=== PATIENT | male | born 1945 | race Caucasian/White ===

== ENCOUNTER → 2016-07-12 | Outpatient (CLI) | payer BC ==
[~2016-07-12] MED LIST: ASPI325T39 PO; ATEN50TA8 PO; CYAN3INJ IM; FRRS300 PO; HYDR-5688 PO; MELA3TAB PO; PRLSR20 PO; ROSU40TA PO; TRIA37.5 PO
[2016-07-12 12:34] LABS: ALT/SGPT 36 U/L (12-78); AST/SGOT 21 U/L (15-37); BLOOD UREA NITROGEN 11 mg/dl (7-18); CALCIUM 8.9 mg/dl (8.5-10.1); CARBON DIOXIDE 33 mmol/L (21-32); CHLORIDE 103 mmol/L (98-107); GLUCOSE 102 mg/dl (70-99); POTASSIUM 4.2 mmol/L (3.5-5.1); SODIUM 140 mmol/L (136-145)
[2016-07-12 12:39] LABS: HEMATOCRIT 48.4 % (42-52); MEAN CELL VOLUME 87.7 fL (80-100); MEAN CORPUSCULAR HEMOGLOBIN 29.3 pg (25-34); MEAN CORPUSCULAR HGB CONC 33.5 g/dl (32-36); MEAN PLATELET VOLUME 10.4 fL (7.4-10.4); PLATELET COUNT 269 K/uL (130-400); RED BLOOD COUNT 5.52 M/uL (4.7-6.1); WHITE BLOOD COUNT 8.54 K/uL (4.8-10.8)
[2016-07-12 12:41] LABS: ALB/GLOB RATIO 0.9 (0.9-2); ALKALINE PHOSPHATASE 89 U/L (45-117); CHOLESTEROL 148 mg/dl (0-200); CHOLESTEROL/HDL RATIO 3.4; HDL CHOLESTEROL 43 mg/dl; LDL CHOLESTEROL CALCULATED 73 mg/dl; PROSTATE SPECIFIC ANTIGEN 0.499 ng/ml (0.000-4.000); TRIGLYCERIDES 160 mg/dl (0-150); VERY LOW DENSITY LIPOPROT CALC 32 mg/dl
[2016-07-12 14:13] LABS: ESTIMATED AVERAGE GLUCOSE 123 mg/dl; HA1C FLAG Normal (Normal)
== END | disposition home or self-care (01) ==
LOC: C.LABBFT 08:41
PROVIDERS: ATTEND Physician Assistant Medical
DX: E78.5 Hyperlipidemia, unspecified (principal); R73.01 Impaired fasting glucose; K21.9 Gastro-esophageal reflux disease without esophagitis; Z12.5 Encounter for screening for malignant neoplasm of prostate

== ENCOUNTER → 2017-01-26 | Outpatient (CLI) | payer BC ==
[2017-01-26 12:43] LABS: HEMATOCRIT 48.3 % (42-52); MEAN CORPUSCULAR HEMOGLOBIN 29.8 pg (25-34); MEAN CORPUSCULAR HGB CONC 33.5 g/dl (32-36); MEAN PLATELET VOLUME 10.3 fL (7.4-10.4); PLATELET COUNT 211 K/uL (130-400); RED BLOOD COUNT 5.43 M/uL (4.7-6.1); WHITE BLOOD COUNT 7.39 K/uL (4.8-10.8)
[2017-01-26 13:07] LABS: ALT/SGPT 35 U/L (12-78); BLOOD UREA NITROGEN 14 mg/dl (7-18); BUN/CREATININE RATIO 13.1 (10-20); CALCIUM 8.9 mg/dl (8.5-10.1); CARBON DIOXIDE 29 mmol/L (21-32); CHLORIDE 104 mmol/L (98-107); CHOLESTEROL 141 mg/dl (0-200); CREATININE 1.09 mg/dl (0.60-1.40); GLUCOSE 88 mg/dl (70-99); POTASSIUM 3.9 mmol/L (3.5-5.1); SODIUM 140 mmol/L (136-145)
[2017-01-26 13:17] LABS: ESTIMATED AVERAGE GLUCOSE 120 mg/dl; HA1C FLAG Normal (Normal)
[2017-01-26 13:18] LABS: ALB/GLOB RATIO 0.9 (0.9-2); ALKALINE PHOSPHATASE 90 U/L (45-117); AST/SGOT 20 U/L (15-37); CHOLESTEROL/HDL RATIO 4.1; HDL CHOLESTEROL 34 mg/dl; LDL CHOLESTEROL CALCULATED 61 mg/dl; THYROID STIMULATING HORMONE 0.986 uIu/ml (0.300-4.500); TRIGLYCERIDES 229 mg/dl (0-150); VERY LOW DENSITY LIPOPROT CALC 46 mg/dl
== END | disposition home or self-care (01) ==
LOC: C.LABBFT 08:16
PROVIDERS: ATTEND Internal Medicine
DX: E53.8 Deficiency of other specified B group vitamins (principal); E78.5 Hyperlipidemia, unspecified; I10 Essential (primary) hypertension; R73.01 Impaired fasting glucose

== ENCOUNTER → 2017-08-09 | Outpatient (CLI) | payer BC ==
[2017-08-09 12:46] LABS: HEMOGLOBIN A1C 5.8 % (4.5-5.6)
[2017-08-09 12:49] LABS: ALBUMIN 3.3 gm/dl (3.4-5.0); ALKALINE PHOSPHATASE 89 U/L (45-117); ALT/SGPT 26 U/L (12-78); AST/SGOT 15 U/L (15-37); BLOOD UREA NITROGEN 14 mg/dl (7-18); CALCIUM 8.4 mg/dl (8.5-10.1); CARBON DIOXIDE 29 mmol/L (21-32); CHOLESTEROL 169 mg/dl (0-200); CREATININE 1.09 mg/dl (0.60-1.40); GLUCOSE 96 mg/dl (70-99); LDL CHOLESTEROL CALCULATED 84 mg/dl; POTASSIUM 3.9 mmol/L (3.5-5.1); SODIUM 141 mmol/L (136-145); TOTAL PROTEIN 7.3 gm/dl (6.4-8.2)
== END | disposition home or self-care (01) ==
LOC: C.LABBFT 08:08
PROVIDERS: ATTEND Internal Medicine
DX: Z12.5 Encounter for screening for malignant neoplasm of prostate (principal); R73.01 Impaired fasting glucose; E78.5 Hyperlipidemia, unspecified

== ENCOUNTER 2023-05-04 08:43 | Observation (INO) ==
--- NOTE | 2023-03-23 09:09 | PAT Medication Instructions ---
Medication Instructions Date of Service March 23, 2023 Home Medications Medication Instructions Recorded atenolol 50 mg tablet 50 mg PO QAM #90 tabs 05/26/22 omeprazole 20 mg capsule,delayed 20 mg PO QAM #90 caps 05/26/22 release aspirin 81 mg tablet 81 mg PO QAM atenolol 50 mg tablet 50 mg PO QAM omeprazole 20 mg capsule,delayed release 20 mg PO QAM atorvastatin 80 mg tablet (Lipitor) 80 mg PO QAM celecoxib 200 mg capsule 200 mg PO QAM valsartan 80 mg tablet 80 mg PO QAM ASK your surgeon for instructions celecoxib 200 mg capsule 200 mg PO QAM ASK your prescriber and surgeon aspirin 81 mg tablet 81 mg PO QAM DO NOT take the morning of surgery valsartan 80 mg tablet 80 mg PO QAM Take morning of surgery With a small sip of water, OTHERWISE NOTHING TO EAT OR DRINK AFTER MIDNIGHT: atenolol 50 mg tablet 50 mg PO QAM omeprazole 20 mg capsule,delayed release 20 mg PO QAM atorvastatin 80 mg tablet (Lipitor) 80 mg PO QAM Other Notes If you have any questions please call us at [phone] or [phone] or [phone] or [phone]
--- NOTE | 2023-03-29 14:39 | Anesthesiology Consultation ---
Date of Service March 29, 2023 Assessment & Plan (1) Encounter for pre-operative examination: - upcoming [place] PCP pre-operative evaluation 04/27/23. - overnight booking per form from Dr. Lemus's office. Patient and his confirm this. OR notified. Chart Review Chart Review: Pending: Refer to Additional Notes / Consult section and Patient seen in Pre Admission Testing Teaching & Discussion Pre-Anesthesia Teaching/Discussion Notes: Instructed NPO after midnight before surgery, except medications with 15 cc of water. Medication instructions provided according to the PAT guidelines. History Surgery Operation Date: 05/04/23 09:15 Proposed Procedures p Right Total Knee Arthroplasty - Erwin Lmeus MD Height/Weight Height: 5 ft 5 in Weight: 108 kg Allergies Allergy/AdvReac Type Severity Reaction Status Date / Time No Known Allergies Allergy Verified 03/22/23 12:28 Medications Home Medications Medication Instructions Recorded Confirmed Last Taken aspirin 81 mg tablet 81 mg PO QAM 03/08/21 03/22/23 06/14/22 07:00 atenolol 50 mg tablet 50 mg PO QAM #90 tabs 05/26/22 03/22/23 06/14/22 07:00 omeprazole 20 mg capsule,delayed 20 mg PO QAM #90 caps 05/26/22 03/22/23 06/14/22 07:00 release atorvastatin 80 mg tablet (Lipitor) 80 mg PO QAM 06/09/22 03/22/23 06/14/22 07:00 celecoxib 200 mg capsule 200 mg PO QAM 06/09/22 03/22/23 06/13/22 valsartan 80 mg tablet 80 mg PO QAM 06/09/22 03/22/23 06/14/22 07:00 Past Medical History Medical History (Updated 03/29/23 @ 14:50 by Sybil Snell PA-C) History of blood transfusion > 10 yrs ago History of diverticulitis last episode several yrs ago History of COVID-05 February 2022: no hospitalization, symptoms: flu like symptoms. no current issues Pneumonia ~ History of colon polyps benign per pt Sensorineural hearing loss (SNHL) of both ears Pulmonary emboli (~2020) s/p whipple procedure. treated with anticoagulants, no current issues. Pancreatic tumor (2020) benign tumor. VI (obstructive sleep apnea) Highly suspected per hospital admission 03/2020. pt does not know if he has/declined sleep study Chronic back pain chronic, denies recent change or worsening GERD (gastroesophageal reflux disease) controlled, stable per pt Hyperlipidemia Hypertension controlled, stable per pt Patient denies h/o stroke, seizures, heart attack, heart failure, or DM. Exercise / Class Metabolic Activity III < 4 Walking/Shop/Light housework (denies chest discomfort or shortness of breath with usual activities, denies using stairs at home (less than 8 steps)) Past Family History Family History Mother Arthritis Cancer female cancer, unknown type by family Brother Prostate cancer AAA (abdominal aortic aneurysm) Cancer Other No family history of adverse response to anesthesia Denies family history of Ovarian cancer Myocardial infarction Breast cancer Lung cancer Colorectal cancer Past Surgical History Surgical History H/O Whipple procedure History of esophagogastroduodenoscopy (EGD) History of tonsillectomy History of colonoscopy History of knee replacement left Past Anesthesia History No Hx of Anesthesia Complications and No Family Hx of Anesthesia Complications History of PONV No Hx of PONV and No Hx of Motion Sickness Social History Smoking Status: Former smoker tobacco type: cigarettes Do You Dip or Chew Tobacco: No Smoking End Date: Hx Alcohol Use: Yes Alcohol type: beer and wine alcohol intake frequency: a few times a week Hx Substance Use: No substance use type: does not use Review of Systems Patient denies chest pain, shortness of breath, dyspnea on exertion, fever, chills, cough, wheezing, or palpitations. Physical Exam Vital Signs Vitals BP 166/85 manual left arm with patient sitting with feet flat on floor after several minutes of relaxation; initial reading 175/100 left arm automatic P 53 TEMP 97.5 SP02 95% on RA RESP 17 Physical Patient resting comfortably in chair in no acute distress, alert and oriented, responding appropriately throughout visit Full cervical extension range of motion without pain TMD 3 finger breadths Mallampati Score 3 Dentition: intact, denies chipped or loose teeth, caps/crowns, implants or bridges Lungs: normal respiratory effort. Good air movement, clear throughout to auscultation, no adventitious breath sounds Cardiac: regular rate and rhythm, no murmurs noted Carotid arteries: negative bruit bilat Lab Results Anesthesia Preop Results Results Anesthesia Widget: WBC 7.25 K/ul (4.8-10.8) 03/29/23 Hgb 15.8 g/dl (14.0-18.0) 03/29/23 Hct 46.2 % (42.0-52.0) 03/29/23 Plt 192 K/uL (130-400) 03/29/23 Na 142 mmol/L (136-145) 03/29/23 K 4.2 mmol/L (3.5-5.1) 03/29/23 Cl 110 mmol/L (98-107) H 03/29/23 CO2 26 mmol/L (21-32) 03/29/23 BUN 15 mg/dl (6-23) 03/29/23 Creat 0.78 mg/dl (0.6-1.4) 03/29/23 Glucose Level 100 mg/dl (70-99(Fasting)) H 03/29/23 PT 12.1 Seconds (9.0-12.0) H 03/29/23 PTT 29 Seconds (21-31) 03/29/23 INR 1.1 (0.9-1.1) 03/29/23 Urine Color Yellow 03/29/23 Urine Appearance Clear (Clear) 03/29/23 Urine pH 5.5 (4.5-7.5) 03/29/23 Urine Specific [place] 1.012 (1.000-1.030) 03/29/23 Urine Protein Negative (Negative) 03/29/23 Urine Glucose (UA) Negative (Negative) 03/29/23 Urine Ketones Negative (Negative) 03/29/23 Urine Blood Negative (Negative) 03/29/23 Urine Nitrite Negative (Negative) 03/29/23 Urine Bilirubin Negative (Negative) 03/29/23 Urine Urobilinogen Negative (Negative) 03/29/23 Urine Leukocyte Esterase Negative (Negative) 03/29/23 Blood Type A Negative 03/29/23 Antibody Screen NEGATIVE 03/29/23 Testing Electrocardiogram Date: 03/29/23 Sinus bradycardia, rate 54 bpm Left axis deviation Minimal voltage criteria for LVH Chest X-Ray Date: 03/29/23 Cardiomegaly with no active disease in the chest. Echocardiogram Date: 03/29/20 EF 65-70% Mild cLVH No significant valvular pathology
--- NOTE | 2023-05-02 16:18 | History & Physical Report ---
Date of Service May 02, 2023 Assessment & Plan (1) Degenerative joint disease of knee, right: Plan: Right total knee replacement with patient-specific implants overnight stay home health to be provided by [facility] DVT prevention with aspirin (2) BMI 39.0-39.9,adult: History of Present Illness Chief Complaint: Right knee pain Primary Care Provider: Bandar Solitario DO Patient is a 81-year-old male with greater than 10-year history of bilateral knee pain and discomfort. He is status post left total knee replacement performed elsewhere in 2012. He continues to have residual pain symptoms in this knee and has had genicular block performed in 2021 with some help. His right knee pain is rated as a 7 out of 10. It is associated with decreased range of motion grinding giving way and instability. He has failed both injections and bracing. He is admitted for elective knee replacement surgery. Allergies Allergy/AdvReac Type Severity Reaction Status Date / Time No Known Allergies Allergy Verified 04/27/23 08:24 Home Medications Medication Instructions Recorded Confirmed Type aspirin 81 mg tablet 81 mg PO QAM 03/08/21 04/27/23 History omeprazole 20 mg capsule,delayed 20 mg PO QAM #90 caps 05/26/22 04/27/23 Rx release celecoxib 200 mg capsule 200 mg PO QAM 06/09/22 04/27/23 History atenolol 50 mg tablet 50 mg PO QAM #90 tabs 04/27/23 04/27/23 Rx atorvastatin 80 mg tablet (Lipitor) 80 mg PO QAM #90 tabs 04/27/23 04/27/23 Rx valsartan 80 mg tablet 80 mg PO QAM #90 tabs 04/27/23 04/27/23 Rx Past Med/Surg History Medical History History of blood transfusion > 10 yrs ago History of diverticulitis last episode several yrs ago History of COVID-05 February 2022: no hospitalization, symptoms: flu like symptoms. no current issues Pneumonia ~ History of colon polyps benign per pt Sensorineural hearing loss (SNHL) of both ears Pulmonary emboli (~2020) s/p whipple procedure. treated with anticoagulants, no current issues. Pancreatic tumor (2020) benign tumor. VI (obstructive sleep apnea) Highly suspected per hospital admission 03/2020. pt does not know if he has/declined sleep study Chronic back pain chronic, denies recent change or worsening GERD (gastroesophageal reflux disease) controlled, stable per pt Hyperlipidemia Hypertension controlled, stable per pt Surgical History H/O Whipple procedure History of esophagogastroduodenoscopy (EGD) History of tonsillectomy History of colonoscopy History of knee replacement left Family History Mother Arthritis Cancer female cancer, unknown type by family Brother Prostate cancer AAA (abdominal aortic aneurysm) Cancer Other No family history of adverse response to anesthesia Denies family history of Ovarian cancer Myocardial infarction Breast cancer Lung cancer Colorectal cancer Social History Smoking Status: Former smoker Tobacco Type: Cigarettes Age Started Using Tobacco: 18; Age Quit Using Tobacco: 38; packs per day: 1; Smoking End Date: ; Second Hand Exposure: No; Do You Dip or Chew Tobacco: No; Tobacco Cessation Education Requested by Patient: No Hx Alcohol Use: Yes Alcohol type: beer and wine Alcohol Intake Frequency: 2-3 x/Week Alcohol Intake Frequency Comment: one day a week, he'll have a few Hx Substance Use: No Preferred Language: Latvian Communication Ability: Effective Visual Impairment: No Limitations Hearing Ability: Normal Machine Feeder Raw Stock Required: No Beliefs That Will Affect Care: None marital status: Current Living Situation: Spouse current occupational status: retired 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 HEENT: NCAT, EOMI, PERRLA. Neck: Supple no bruits Heart: Regular rate and rhythm no murmurs Lungs: Breath sounds clear and present in all nicole Abdomen: Obese soft nontender bowel sounds positive Extremities right knee shows varus deformity range of motion is 0 to 110 degrees trace medial laxity positive effusion and pain. Neurological and vascular: Intact Results & Data Results & Data Vital Signs (Past 12 Hours) Blood pressure 122/82 Pulse 56
[~2023-05-04 08:43] MED LIST changes: -ASPI325T39 PO; -ATEN50TA8 PO; +BUPIVACAINE 0.5 % 5 MG/1 ML PF 10ML VIAL ONE; -CYAN3INJ IM; -FRRS300 PO; -HYDR-5688 PO; -MELA3TAB PO; -PRLSR20 PO; +ROPIVACAINE 0.5% 5 MG/ML 30 ML VIAL ONE; -ROSU40TA PO; -TRIA37.5 PO
[2023-05-04] MEDS: FAMOTIDINE 20 MG TAB PO SCH (09:12)
[2023-05-04] MEDS: oxyCODONE HCL 10 MG TABCR (OxyCONTIN) PO SCH (09:12)
[2023-05-04] MEDS: CeleBREX 200 MG CAP PO SCH (09:12)
[2023-05-04] MEDS: dexAMETHasone**PF** 10 MG/ML VIAL IV SCH (09:12)
[2023-05-04] MEDS: GABAPENTIN 300 MG CAP PO SCH (09:12)
[2023-05-04] MEDS: ACETAMINOPHEN 500 MG TAB PO SCH (09:12)
[2023-05-04] MEDS: LR 60ML/HR IV SCH (09:13)
[2023-05-04] MEDS: LR 500ML BOLUS, THEN 15ML/HR IV SCH (09:35)
--- NOTE | 2023-05-04 09:49 | History & Physical Bridge Note ---
Date of Service May 04, 2023 History & Physical Bridge Note I have examined the patient, reviewed the History & Physical and in the interval since the performance of the History & Physical I have noted the following changes of clinical significance: no changes noted
[2023-05-04] MEDS ORDERED: MIDAZOLAM HCL 1 MG/ML 2ML VIAL ONE (10:28)
[2023-05-04] MEDS ORDERED: fentaNYL citrate PF 100 MCG/2 ML VIAL ONE (10:28)
[2023-05-04] MEDS ORDERED: PROPOFOL IV EMULSION 10 MG/ML 20 ML VIAL IV ONE ×3 (10:31)
[2023-05-04] MEDS ORDERED: fentaNYL citrate PF 100 MCG/2 ML VIAL IV PRN (10:44)
[2023-05-04] MEDS ORDERED: ePHEDrine sulfate 50 MG/ML AMP IV PRN (10:44)
[2023-05-04] MEDS ORDERED: ATROPINE SULFATE 0.1 MG/ML 10ML SYR IV PRN (10:44)
[2023-05-04] MEDS ORDERED: ONDANSETRON INJ 2 MG/ML 2 ML VIAL IV PRN ×2 (10:44→14:43)
[2023-05-04] MEDS: TRANEXAMIC ACID 1,000 MG **IV Pre-op IV SCH (11:01)
[2023-05-04] MEDS: ceFAZolin 2000MG 2,000 MG/15 ML SYR IV SCH ×2 (11:18→19:13)
[2023-05-04] MEDS ORDERED: ePHEDrine sulfate 50 MG/5 ML SYR ONE (11:46)
[2023-05-04] MEDS: ORTHO JOINT ANESTHETIC ONE (11:55)
[2023-05-04] MEDS: ROPIV 0.5% 246mg, Ketorolac 30mg, EPINEPHrine 0.5mg in NSS INFIL SCH (12:15)
[2023-05-04] MEDS ORDERED: KETOROLAC 30 MG/ML VIAL ONE (12:20)
[2023-05-04] MEDS: TRANEXAMIC ACID 1,000 MG **IV Intra-op IV SCH (12:23)
--- NOTE | 2023-05-04 12:26 | Post Operative Brief Note ---
Immediate Post Op Note v1 Date of Surgery May 04, 2023 Pre & Post Diagnosis Operation Date: 05/04/23 10:30 Pre-Op Diagnosis: Degenerative joint disease of knee, right Post-Op Diagnosis: Degenerative joint disease of knee, right I identified the patient and participated in the time-out.: Yes Procedure Operation Date: 05/04/23 10:30 Actual Procedures p Right Total Knee Replacement - Erwin Lemus MD Surgeon Erwin Lemus MD Accessioner Darnell Petersen PA-C Estimated Blood Loss 100 Findings Consistent with Post-Op Diagnosis Drains Hemovac Drain
--- NOTE | 2023-05-04 13:17 | Operative Report ---
Post Operative Report Pre & Post Diagnosis Operation Date: 05/04/23 10:30 Pre-Op Diagnosis: Degenerative joint disease of knee, right Post-Op Diagnosis: Degenerative joint disease of knee, right I identified the patient and participated in the time-out.: Yes Procedure Operation Date: 05/04/23 10:30 Actual Procedures p Right Total Knee Replacement - Erwin Lemus MD Surgeon Erwin Lemus MD Ventilation Worker Darnell Petersen PA-C Estimated Blood Loss 100 Findings Consistent with Post-Op Diagnosis Tricompartmental degenerative changes with bone wear on the medial side of the k nee extreme Specimens bone and cartilage fragments Complications none Indications components used: [employer]hew journey 2 posterior stabilized knee system: Femur size 7 with Oxinium coating, tibia size 6 x 10, patella size 38 oval Description of Procedure following satisfactory spinal anesthesia the patient was supine on the operating room table. The right lower extremity was prepared with ChloraPrep and draped sterilely. A surgical timeout was performed. A midline incision was made with a median parapatellar arthrotomy. Hemostasis was obtained and the knee showed the changes noted above with chronically inflamed synovial lining. Because of the patient's large body habitus attention was turned to the patella. The patella was freehand cut and sized for a 38 button which enhanced exposure to the lateral compartment of the knee. The cruciate ligaments were excised. The patient matched femoral block was applied. Femoral distal resection and rotation were setting completed. The 4-in-1 block was then used to finish preparation of the femur. The meniscal fragments were excised. The patient matched tibial block was applied. Tibial resection was completed. Soft tissue balancing was completed in flexion and extension and required a superficial MCL release to balance the knee. A trial reduction with the above-mentioned components was performed. This showed good tensioning and stability on the collateral ligaments from full extension to more than 115 degrees of flexion and the patella tracked well throughout. Trial components were removed. The capsule was prepared with the orthopedic cocktail. After irrigation and drying the components were cemented using Lissy Z be cement cementing the tibia first, femur second, and patella third. When the cemented hardened the knee was checked and showed similar stability and tracking as above. The wound was irrigated with 500 cc of experience irrigation. A Hemovac drain was placed. The capsulotomy was closed with interrupted [id number] sutures of 1 Vicryl and a running suture of 0 strata fix. The subcutaneous tissues were closed with 0 strata fix deep 2 oh strata fix more superficial and 3 oh strata fix in the skin. Prineo dressing was applied followed by a negative pressure wound dressing and a compressive bandage. The patient was returned to his bed in stable condition. Note: Darnell TRISTAN was present and assisted throughout due to the complicated nature of this case. He help with preparation and set up an night assistant throughout. He assisted with hemostasis and exposure throughout the procedure. He also closed the capsule subcutaneous and skin layers and applied postop dressing. I attest to the content of the Intraoperative Record and any orders documented therein. Any exceptions are noted below.
--- NOTE | 2023-05-04 14:23 | Anesthesiology Progress Note ---
Date of Service May 04, 2023 Anesthesia Post Procedure Vital Signs Vital Signs: Temp Pulse Pulse Resp BP Pulse Ox O2 Del Method 05/04/23 14:00 68 16 128/71 96 Nasal Cannula 05/04/23 13:45 70 16 132/70 94 Nasal Cannula 05/04/23 13:35 36.5 C 72 16 132/82 94 Nasal Cannula 05/04/23 13:25 78 18 133/82 93 Oxymask 05/04/23 13:15 75 18 139/70 93 Oxymask 05/04/23 13:07 36.6 C 73 19 135/69 93 Oxymask 05/04/23 09:04 36.6 C 73 20 181/89 H 95 Room Air O2 Flow Rate 05/04/23 14:00 4 05/04/23 13:45 4 05/04/23 13:35 4 05/04/23 13:25 5 05/04/23 13:15 5 05/04/23 13:07 5 05/04/23 09:04 Notes Mental Status: alert / awake / arousable Patient Amnestic to Procedure: Yes Nausea / Vomiting: adequately controlled Pain: adequately controlled Airway Patency, RR, SpO2: stable & adequate BP & HR: stable & adequate Hydration State: stable & adequate Neuraxial Anesthesia: was administered and sensory block is resolving Anesthetic Complications: no major complications apparent
[2023-05-04] MEDS ORDERED: METOCLOPRAMIDE HCL INJ 5 MG/ML 2 ML VIAL IV PRN (14:43)
[2023-05-04] MEDS ORDERED: bisacodyL 10 MG SUPP PR PRN (14:43)
[2023-05-04] MEDS ORDERED: MAGNESIUM HYDROXIDE SUSP 30 ML UDC PO PRN (14:43)
[2023-05-04] MEDS ORDERED: NALOXONE HCL 0.4 MG/1 ML VIAL/CARP IV PRN (14:43)
[2023-05-04] MEDS: SODIUM CHLORIDE 0.9% 1,000 ML IV SCH (14:47)
[2023-05-04] MEDS: oxyCODONE HCL IR 5 MG TAB (IMMEDIATE RELEASE) PO PRN ×2 (14:58→19:05)
[2023-05-04] MEDS: DOCUSATE SODIUM 100 MG CAP PO SCH (21:32)
[2023-05-04] MEDS: ASPIRIN 81 MG ECTAB PO SCH (21:33)
[2023-05-04] MEDS: SENNA 8.6 MG TAB PO SCH (21:33)
--- NOTE | 2023-05-05 06:13 | Orthopedic Progress Note ---
Date of Service May 05, 2023 Assessment & Plan (1) Degenerative joint disease of knee, right: Plan: Postop day 1 status post right total knee arthroplasty. PT/OT protocols. Weightbearing as tolerated. DVT prophylaxis-aspirin p.o. twice daily, SCDs Pain management as written. DC planning-patient is planning for home health services upon discharge. Labs are currently pending. Nursing to call or [place] text myself or Dr. Lemus with any abnormalities. Otherwise, if he is progressing well with physical therapy, we will plan for discharge to home today. (2) BMI 39.0-39.9,adult: Admission and Anticipated Discharge Date Admission Date: May 04, 2023 Subjective Post Operative day 1 Patient awake and alert upon arrival to his room. Patient states that he is doing very well this morning. He has no pain whatsoever. He states that he has been up to the bathroom with nursing without difficulty. No obvious lightheaded ness when up out of bed. Patient is hoping to go home today. Physical Exam Physical Exam: Dressings are clean, dry, and intact. Calves are soft nontender. Neurovascular intact. Toes are mobile. He has good dorsiflexion and plantarflexion of his right foot. Hemovac drainage was 200 cc from the previous shift. Results & Data Vital Signs (Past 12 Hours) Vital Signs Temp Pulse Resp BP Pulse Ox O2 Del Method O2 Flow Rate 05/05/23 03:28 36.5 C 78 16 147/81 H 94 Room Air 05/04/23 21:51 Nasal Cannula 4 05/04/23 21:39 36.4 C L 74 18 160/89 H 94 Nasal Cannula 4 05/04/23 19:22 36.5 C 78 16 178/95 H 95 Room Air 05/04/23 19:03 160/71 H
[2023-05-05 08:43] LABS: Hematocrit (blood only) 40.7 % (42.0-52.0); Hemoglobin 13.4 g/dl (14.0-18.0); Mean Corpuscular Hgb Conc 32.9 g/dL (32.0-36.0); Mean Corpuscular Volume 91.1 fL (80.0-100.0); Mean Platelet Volume 9.8 fL (9.4-12.4); Platelet Count 194 K/uL (130-400); RDW Coefficient of Variation 11.9 % (11.5-14.5); Red Blood Count 4.47 M/uL (4.70-6.10)
[2023-05-05 08:55] LABS: BUN Creatinine Ratio 21.2 (10-20); Calcium 8.3 mg/dl (8.6-10.3); Creatinine Clr Calc Pharmacy 84.6 ml/min; Est GFR (African American) 98.1 ml/min; Est GFR (Non-African American) 84.6 ml/min
[2023-05-05] MEDS: ATENOLOL 50 MG TABLET PO SCH (09:37)
[2023-05-05] MEDS: PANTOprazole 40 MG TAB PO SCH (09:37)
[2023-05-05] MEDS: ATORVASTATIN 40 MG TAB PO SCH (09:37)
[2023-05-05] MEDS: VALSARTAN 80 MG TAB PO SCH (09:37)
[2023-05-05] MEDS: MULTIVITAMIN TAB PO SCH (09:37)
== END 2023-05-05 12:15 | disposition home health service (06) ==
LOC: ASU 08:43 → 3E 08:43
DX: E78.5 Hyperlipidemia, unspecified; Z86.16 Personal history of COVID-19; Z86.711 Personal history of pulmonary embolism; Z79.899 Other long term (current) drug therapy; Z79.1 Long term (current) use of non-steroidal anti-inflammatories (NSAID); Z87.891 Personal history of nicotine dependence; G47.33 Obstructive sleep apnea (adult) (pediatric); M17.11 Unilateral primary osteoarthritis, right knee; Z68.41 Body mass index [BMI] 40.0-44.9, adult; K21.9 Gastro-esophageal reflux disease without esophagitis; Z96.652 Presence of left artificial knee joint; E66.9 Obesity, unspecified; I10 Essential (primary) hypertension; Z79.82 Long term (current) use of aspirin

== ENCOUNTER 2024-11-25 17:12 | Inpatient (IN) ==
[2024-11-25] MEDS ORDERED: VANCOMYCIN CONSULT ACTIVE PRN (18:02)
--- NOTE | 2024-11-25 18:49 | Emergency Department Note ---
Impression & Plan Abscess of groin, right ED Provider Note HISTORY OF PRESENT ILLNESS: Patient is a 79-year-old male presenting with pain and swelling to his right groin. Patient reports that 4 days ago he noticed a small boil on his right groin and inguinal region. He reports that it initially started as a small spot but is progressively gotten more swollen and has been having some bloody drainage. He is unsure if maybe he was bit by something, as he reports they were out camping. He states that he had significant discomfort today and followed with his primary care provider who referred him to the emergency department. The resident physician did call in and states that the patient had a fluctuant and erythematous region to his right groin. Patient denies any fevers. He is not diabetic. He reports his tetanus shot is up-to-date. He denies any abdominal pain, nausea or vomiting. Patient reports he is not diabetic. ROS: as above PHYSICAL EXAM: Constitutional: Patient appears in no acute distress. Obese HENT: Head: Normocephalic and atraumatic. Eyes: EOMI, PERRL Mouth/Throat: Mucous membranes moist. Neck: Trachea midline. Neck supple. Cardiovascular: RRR, No murmurs, rubs or gallops. Intact distal pulses. Pulmonary/Chest: No respiratory distress. Breath sounds clear and equal bilaterally. No wheezes or rales. Abdominal: Abdomen soft, no tenderness, rebound or guarding. : Chaperoned by male nurse. Patient does have a skin boil that appears blood- filled to the right groin region, just superior to the inguinal canal. There is some palpable fluctuance underneath this area. Area is tender to palpation. No palpable crepitus. There is no erythema, swelling or wounds noted on the scrotum. No tenderness to palpation of the scrotum. Cremasteric reflexes intact bilaterally. Musculoskeletal: No edema, tenderness or deformity noted. Skin: Warm and dry. No rash, erythema, pallor or cyanosis Psychiatric: Appropriate mood and affect for situation. Neurological: Alert and keenly responsive. CN II-XII grossly intact, moving all extremities equally and fully. MDM: - Vitals signs showed hypertension - History obtained via patient. History as above. - Chronic conditions affecting care: HTN; HLD; obesity - Differential diagnoses include, but are not limited to: Hector's gangrene; abscess; fistula - Order placed for continuous cardiac monitoring. At this time, monitor showed rate of 67 bpm with normal sinus rhythm, per my interpretation. - External medical records reviewed. - Laboratory workup interpreted by myself showed normal WBC but elevated neutrophil count; normal PT/INR; stable electrolytes; elevated CRP (6.03); elevated total bilirubin (1.6); normal procalcitonin; normal lactate - Blood cultures obtained - CT abdomen/pelvis with IV contrast showed fluid collection in the right groin subcutaneous fat measuring 3.5 x 2.2 cm. - Patient given 1g IV tylenol and 50 mcg IV fentanyl for pain control. Given IV vancomycin, zosyn and clindamycin for antibiotic coverage - Discussed case with general surgeon on-call, Dr. Deng, at 22:00. He reports that the abscess is small enough that antibiotics should be able to take care of it. He reports that surgery will consult and follow along in the morning. - Discussion was had with disease case manager about patient's case and need for admission - Hospitalist consulted for admission - [facility] 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 Tremor GERD without esophagitis (Chronic) Hypertension (Chronic) Hypercholesterolemia (Chronic) Medical History History of blood transfusion History of diverticulitis History of COVID-19 Pneumonia History of colon polyps Sensorineural hearing loss (SNHL) of both ears Pulmonary emboli (~2020) Pancreatic tumor VI (obstructive sleep apnea) Chronic back pain GERD (gastroesophageal reflux disease) Hyperlipidemia Hypertension Surgical History Total knee replacement status H/O Whipple procedure History of esophagogastroduodenoscopy (EGD) History of tonsillectomy History of colonoscopy History of knee replacement Family History Mother Arthritis Cancer Brother Prostate cancer AAA (abdominal aortic aneurysm) Cancer Other No family history of adverse response to anesthesia Denies family history of Ovarian cancer Myocardial infarction Breast cancer Lung cancer Colorectal cancer Social History Smoking Status: Former smoker Tobacco Type: Cigarettes Age Started Using Tobacco: 18; Age Quit Using Tobacco: 38; packs per day: 1; Second Hand Exposure: No; Do You Dip or Chew Tobacco: No; Hx Alcohol Use: Yes Alcohol type: beer and wine Alcohol Intake Frequency: 2-3 x/Week Alcohol Intake Frequency Comment: one day a week, he'll have a few Hx Substance Use: No Preferred Language: Malawian Communication Ability: Effective Visual Impairment: No Limitations Hearing Ability: Normal Water Resource Agent Required: No Beliefs That Will Affect Care: None marital status: Current Living Situation: Spouse current occupational status: retired 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 Feels Safe at Home: Yes Childhood Exposure to Second-Hand Smoke: No Diet: regular caffeine: Yes Dental Care, Regularly: No Physical Activity Frequency: Other Physical Activity Frequency Comment: occasional walking, when its nice outside Seatbelt Use: always Sunscreen Use: No Assistive Devices: Walker Allergies Allergies Allergy/AdvReac Type Severity Reaction Status Date / Time No Known Allergies Allergy Verified 11/25/24 19:55 Home Meds Home Medications Medication Instructions Recorded Confirmed aspirin 81 mg tablet 81 mg PO QAM 03/08/21 11/25/24 Previous Rx's Medication Instructions Recorded atenolol 50 mg tablet 50 mg PO QAM #90 tabs 02/08/24 atorvastatin 80 mg tablet (Lipitor) 80 mg PO QAM #90 tabs 02/08/24 celecoxib 200 mg capsule 200 mg PO QAM #90 caps 02/08/24 omeprazole 20 mg capsule,delayed 20 mg PO QAM #90 caps 02/08/24 release valsartan 80 mg tablet 80 mg PO QAM #90 tabs 02/08/24 Results & Data (ED) Vital Signs Vital Signs - 24 hr 11/25/24 17:24 11/25/24 18:49 11/25/24 19:00 Temperature 37 C Temperature Source Temporal Artery Scan Pulse Rate 77 Pulse Rate [Apical] 71 Pulse Rate from SpO2 Sensor Pulse Rhythm [Apical] Regular Pulse Strength [Apical] Normal Respiratory Rate 22 22 Respiratory Effort / Characteristics Non-Labored Spontaneous Respiratory Depth Normal Normal Respiratory Pattern Regular Blood Pressure 194/85 H 149/84 H Blood Pressure [Right Arm] 158/70 H Blood Pressure Mean 121 106 Blood Pressure Mean [Right Arm] 99 Pulse Oximetry 93 94 Oxygen Delivery Method Room Air Room Air Sepsis Recent Fever Within 48 Hours No Sepsis New/Unexplained Change in Mental Status No Sepsis Action Taken by Nursing No Action Required 11/25/24 19:17 11/25/24 19:36 11/25/24 20:33 Temperature Temperature Source Pulse Rate 76 75 74 Pulse Rate [Apical] Pulse Rate from SpO2 Sensor 76 74 Pulse Rhythm [Apical] Pulse Strength [Apical] Respiratory Rate 22 18 Respiratory Effort / Characteristics Respiratory Depth Respiratory Pattern Blood Pressure 165/90 H 170/78 H Blood Pressure [Right Arm] Blood Pressure Mean 115 108 Blood Pressure Mean [Right Arm] Pulse Oximetry 93 93 Oxygen Delivery Method Room Air Room Air Sepsis Recent Fever Within 48 Hours Sepsis New/Unexplained Change in Mental Status Sepsis Action Taken by Nursing 11/25/24 21:00 11/25/24 21:30 Temperature Temperature Source Pulse Rate 67 67 Pulse Rate [Apical] Pulse Rate from SpO2 Sensor 67 67 Pulse Rhythm [Apical] Pulse Strength [Apical] Respiratory Rate 22 22 Respiratory Effort / Characteristics Respiratory Depth Respiratory Pattern Blood Pressure 123/79 145/77 H Blood Pressure [Right Arm] Blood Pressure Mean 93 99 Blood Pressure Mean [Right Arm] Pulse Oximetry 92 93 Oxygen Delivery Method Room Air Room Air Sepsis Recent Fever Within 48 Hours Sepsis New/Unexplained Change in Mental Status Sepsis Action Taken by Nursing Laboratory Data 11/25/24 18:40 11/25/24 18:40 Lab Results 11/25/24 Range/Units 18:40 WBC 9.63 (4.8-10.8) K/ul RBC 4.96 (4.70-6.10) M/uL Hgb 15.1 (14.0-18.0) g/dl Hct 44.9 (42.0-52.0) % MCV 90.5 (80.0-100.0) fL MCH 30.4 (25.0-34.0) pg MCHC 33.6 (32.0-36.0) g/dL RDW Std Deviation 41.8 (36.4-46.3) fL RDW Coeff of Capo 12.7 (11.5-14.5) % Plt Count 186 (130-400) K/uL MPV 9.4 (9.4-12.4) fL Immature Gran % (Auto) 0.2 % Neut % (Auto) 76.8 % Lymph % (Auto) 12.5 % Jefferson % (Auto) 9.0 % Eos % (Auto) 1.2 % Baso % (Auto) 0.3 % Neut # (Auto) 7.39 H (1.40-6.50) K/uL Lymph # (Auto) 1.20 (1.20-3.40) K/uL Jefferson # (Auto) 0.87 H (0.11-0.59) K/uL Eos # (Auto) 0.12 (0.00-0.50) K/uL Baso # (Auto) 0.03 (0.00-0.20) K/uL Immature Gran # (Auto) 0.02 (0.01-0.20) K/uL ESR 31 H (0-20) mm/hr PT 11.2 (9.0-12.0) Seconds INR 1.0 (0.9-1.1) APTT 27 (21-31) Seconds PTT Ratio 1.0 Sodium 139 (136-145) mmol/L Potassium 4.0 (3.5-5.1) mmol/L Chloride 105 (98-107) mmol/L Carbon Dioxide 27 (21-32) mmol/L Anion Gap 7 (3-11) BUN 12 (6-23) mg/dl Creatinine 0.73 (0.6-1.4) mg/dl Est Cr Clr Drug Dosing 104.0 ml/min eGFR 93.71 BUN/Creatinine Ratio 16.4 (10-20) Glucose 102 H (70-99(Fasting)) mg/dl Lactate 1.2 (0.4-2.0) mmol/L Calcium 9.1 (8.6-10.3) mg/dl Total Bilirubin 1.6 H (0.2-1.0) mg/dl AST 15 (13-39) U/L ALT 14 (7-52) U/L Alkaline Phosphatase 100 (34-104) U/L C-Reactive Protein 6.03 H (0-0.5) mg/dl Total Protein 7.1 (6.0-8.3) gm/dl Albumin 3.8 (3.4-5.0) gm/dl Globulin 3.3 (2.5-4.0) gm/dl Albumin/Globulin Ratio 1.2 (0.9-2) Procalcitonin 0.05 (0-0.5) ng/ml Administered Medications Discontinued Medications Fentanyl Citrate (Fentanyl Citrate Pf 100 Mcg/2 Ml Vial) 50 mcg IV NOW STA Stop: 11/25/24 18:55 Last Admin: 11/25/24 20:27 Dose: 50 mcg Documented By: ARMANDO Vancomycin HCl 2,500 mg/ (Sodium Chloride) 550 mls @ 200 mls/hr IV NOW ONE Stop: 11/25/24 20:46 Last Admin: 11/25/24 19:56 Dose: 200 mls/hr Documented By: ARMANDO Clindamycin Phosphate (Cleocin/D5w) 900 mg in 50 mls @ 100 mls/hr IV NOW ONE Stop: 11/25/24 18:31 Last Infusion: 11/25/24 20:23 Dose: Infused Documented By: Admin: 11/25/24 19:56 Dose: 100 mls/hr Documented By: ARMANDO Piperacillin Sod/Tazobactam Sod (Zosyn) 4.5 gm in 100 mls @ 200 mls/hr IV NOW ONE; Protocol Stop: 11/25/24 18:31 Last Infusion: 11/25/24 19:54 Dose: Infused Documented By: Admin: 11/25/24 19:23 Dose: 200 mls/hr Documented By: ARMANDO Acetaminophen (Ofirmev) 1,000 mg in 100 mls @ 400 mls/hr IV NOW STA Stop: 11/25/24 19:00 Last Infusion: 11/25/24 19:54 Dose: Infused Documented By: Admin: 11/25/24 19:39 Dose: 400 mls/hr Documented By: ARMANDO Ioversol (Optiray 320 100ml) 93 ml IV ONCE ONE Stop: 11/25/24 20:35 Last Admin: 11/25/24 20:34 Dose: 93 ml Documented By: PRANAV Imaging Data Radiologist's Impression: Abdomen/Pelvis CT 11/25/24 17:59 Exam(s): CT ABDOMEN + PELVIS With Contrast IV Amt: 93 CC OPTI 320 EXAM: CT Abdomen and Pelvis With Intravenous Contrast CLINICAL HISTORY: Reason for exam: scrotal swelling. TECHNIQUE: Axial computed tomography images of the abdomen and pelvis with intravenous contrast. CTDI is 27.56 mGy and DLP is 1606.33 mGy-cm. Automated exposure control was utilized for the study. A dose lowering technique was utilized adhering to the principles of ALARA. CONTRAST: Patient received 93 CC OPTI 320 of IV contrast COMPARISON: 07/10/2020 FINDINGS: ABDOMEN: Liver: Unremarkable. Gallbladder and bile ducts: Cholecystectomy. Pneumobilia. Pancreas: Unremarkable. Spleen: Unremarkable. Adrenals: Unremarkable. Kidneys and ureters: Unremarkable. No obstructing stones. No hydronephrosis. Stomach and bowel: Colonic diverticulosis without acute diverticulitis. PELVIS: Appendix: No findings to suggest acute appendicitis. Bladder: Unremarkable. Reproductive: Unremarkable as visualized. ABDOMEN and PELVIS: Intraperitoneal space: Unremarkable. No free air. No significant fluid collection. Bones/joints: Advanced degenerative changes in the spine. Soft tissues: Fluid collection in the right groin subcutaneous fat measuring 3.5 x 2.2 cm. Vasculature: Unremarkable. Lymph nodes: Unremarkable. IMPRESSION: Fluid collection in the right groin subcutaneous fat measuring 3.5 x 2. 2 cm. Abscess can have this appearance in the appropriate clinical setting. Electronically signed by: Sam Peña MD 11/25/24 21:03 PM Discharge Plan Visit Data Chief Complaint: Groin Pain Stated Complaint: BOIL ON RT GROIN AREA ED Provider: Gem Mayen Discharge Problem: Abscess of groin, right Condition: Fair Forms Stand Alone Forms: My [facility] Caset[employer] Prescriptions Prescriptions: No Action atenolol 50 mg tablet 50 mg PO QAM Qty: 90 3RF atorvastatin [Lipitor] 80 mg tablet 80 mg PO QAM Qty: 90 3RF celecoxib 200 mg capsule 200 mg PO QAM Qty: 90 3RF Hold Instructions: You will be taking Celebrex twice daily for 30 days after your surgery. You will resume your once daily dosing thereafter. omeprazole 20 mg capsule,delayed release(DR/EC) 20 mg PO QAM Qty: 90 3RF valsartan 80 mg tablet 80 mg PO QAM Qty: 90 3RF aspirin 81 mg tablet 81 mg PO QAM Hold Instructions: You will be taking your aspirin twice daily for the next 30 days. 1 tablet in the morning and 1 tablet in the evening. After 30 days you may resume your once daily dosing of your aspirin tablet Referrals Referrals: Bandar Solitario, [Primary Care Provider] -
[2024-11-25 18:57] LABS: Hematocrit (blood only) 44.9 % (42.0-52.0); Hemoglobin 15.1 g/dl (14.0-18.0); Immature Granulocytes # (auto) 0.02 K/uL (0.01-0.20); Immature Granulocytes % (auto) 0.2 %; Mean Corpuscular Hemoglobin 30.4 pg (25.0-34.0); Mean Corpuscular Volume 90.5 fL (80.0-100.0); Platelet Count 186 K/uL (130-400); RDW Standard Deviation 41.8 fL (36.4-46.3); Red Blood Count 4.96 M/uL (4.70-6.10); White Blood Count 9.63 K/ul (4.8-10.8)
[2024-11-25 19:13] LABS: Alanine Aminotransferase 14.0 U/L (7-52); Albumin Globulin Ratio 1.2 (0.9-2); Alkaline Phosphatase 100.0 U/L (34-104); Anion Gap 7.0 (3-11); Bilirubin,Total 1.6 mg/dl (0.2-1.0); Blood Urea Nitrogen 12.0 mg/dl (6-23); Calcium 9.1 mg/dl (8.6-10.3); Carbon Dioxide 27.0 mmol/L (21-32); Chloride 105.0 mmol/L (98-107); Creatinine Clr Calc Pharmacy 104.0 ml/min; Globulin 3.3 gm/dl (2.5-4.0); Glucose 102.0 mg/dl (70-99(Fasting)); Potassium 4.0 mmol/L (3.5-5.1); Sodium 139.0 mmol/L (136-145); Total Protein 7.1 gm/dl (6.0-8.3)
[2024-11-25] MEDS: PIPERACILLIN/TAZOBACTAM 4.5 GM/100 ML BAG IV ONE (19:23)
[2024-11-25 19:25] LABS: INR 1.0 (0.9-1.1); Partial Thromboplastin Time 27 Seconds (21-31); Prothrombin Time 11.2 Seconds (9.0-12.0)
[2024-11-25] MEDS: ACETAMINOPHEN 1,000 MG/100 ML VIAL IV STA (19:39)
[2024-11-25] MEDS: VANCOMYCIN HCL 2,500 MG in SODIUM CHLORIDE 0.9% 500 ML IV ONE (19:56)
[2024-11-25] MEDS: CLINDAMYCIN/D5W 900 MG/50 ML BAG IV ONE (19:56)
[2024-11-25] MEDS: OPTIRAY 320 100ml IV ONE (20:34)
--- NOTE | 2024-11-25 21:04 | CT Scan Report ---
Exam(s): CT ABDOMEN + PELVIS With Contrast IV Amt: 93 CC OPTI 320 EXAM: CT Abdomen and Pelvis With Intravenous Contrast CLINICAL HISTORY: Reason for exam: scrotal swelling. TECHNIQUE: Axial computed tomography images of the abdomen and pelvis with intravenous contrast. CTDI is 27.56 mGy and DLP is 1606.33 mGy-cm. Automated exposure control was utilized for the study. A dose lowering technique was utilized adhering to the principles of ALARA. CONTRAST: Patient received 93 CC OPTI 320 of IV contrast COMPARISON: 07/10/2020 FINDINGS: ABDOMEN: Liver: Unremarkable. Gallbladder and bile ducts: Cholecystectomy. Pneumobilia. Pancreas: Unremarkable. Spleen: Unremarkable. Adrenals: Unremarkable. Kidneys and ureters: Unremarkable. No obstructing stones. No hydronephrosis. Stomach and bowel: Colonic diverticulosis without acute diverticulitis. PELVIS: Appendix: No findings to suggest acute appendicitis. Bladder: Unremarkable. Reproductive: Unremarkable as visualized. ABDOMEN and PELVIS: Intraperitoneal space: Unremarkable. No free air. No significant fluid collection. Bones/joints: Advanced degenerative changes in the spine. Soft tissues: Fluid collection in the right groin subcutaneous fat measuring 3.5 x 2.2 cm. Vasculature: Unremarkable. Lymph nodes: Unremarkable. IMPRESSION: Fluid collection in the right groin subcutaneous fat measuring 3.5 x 2. 2 cm. Abscess can have this appearance in the appropriate clinical setting. Electronically signed by: Sam Peña MD 11/25/24 21:03 PM
--- NOTE | 2024-11-25 22:52 | Ultrasound Report ---
Exam(s): US SOFT TISSUE EXAM: US Abdomen Limited CLINICAL HISTORY: Reason for exam: R groin wound; r/o abscess. TECHNIQUE: Real-time ultrasound of the soft tissues of the right groin with image documentation. COMPARISON: No relevant prior studies available. FINDINGS: Soft tissues: Complex fluid collection just deep to the skin surface measuring 3.4 x 2.2 x 2.3 cm consistent with abscess. Surrounding hyperemia. IMPRESSION: Complex fluid collection measuring 3.4 x 2.2 x 2.3 cm consistent with abscess. Electronically signed by: Sam Peña MD 11/25/24 22:51 PM
--- NOTE | 2024-11-25 23:26 | History & Physical Report ---
Date of Service November 25, 2024 Assessment & Plan (1) Abscess of groin, right: (2) Neuropathy of both feet: (3) Hypertension: (4) GERD without esophagitis: Plan The patient is a 79-year-old male with past medical history including neuropathy of both feet, GERD, esophagitis, hypertension, hypercholesterolemia, insulinoma, history of right TKA, and impaired fasting glucose. The patient presents to the emergency department with worsening right groin pain, and swelling, initially noted about 1 week ago, but worsened gradually over the last 4 days. He reports that there was some bloody drainage, however, in the emergency department, he was noted to have a more significant spontaneous drainage occur, which was cultured. He is going to see his PCP today, however, he was referred to the ED for evaluation. He does report some general fatigue and achiness. He and his report that they do go camping in the [facility] on a weekly basis. Tick panel has been ordered and pending. Right groin abscess- As noted on CT Given vancomycin IV, clindamycin IV and Zosyn IV in ED Admit on vancomycin IV and Zosyn IV Acetaminophen 650 mg by mouth every 6 hours as needed for mild pain or fever Ulysses 5/325, 1 every 6 hours as needed for moderate pain Morphine 2 mg IV every 3 hours as needed for severe pain LR at 80 mL/h x 1 L N.p.o. except meds after midnight Serial CBC with differential, chemistry profile and magnesium Consult to general surgery already made by the ED Hypertension- Atenolol 50 mg p.o. and valsartan every morning with hold parameters Hold aspirin Hyperlipidemia- Continue atorvastatin GERD without esophagitis- Change omeprazole to pantoprazole per formulary interchange Right knee OA/TKA- Hold Celebrex History of Present Illness Chief Complaint: The patient presents to the emergency department with worsening right groin pain, and swelling, initially noted about 1 week ago, but worsened gradually over the last 4 days. He reports that there was some bloody drainage, however, in the emergency department, he was noted to have a more significant spontaneous drainage occur, which was cultured. He is going to see his PCP today, however, he was referred to the ED for evaluation. He does report some general fatigue and achiness. He and his report that they do go camping in the [facility] on a weekly basis. Primary Care Provider: Bandar Solitario DO The patient is a 79-year-old male with past medical history including neuropathy of both feet, GERD, esophagitis, hypertension, hypercholesterolemia, insulinoma, history of right TKA, and impaired fasting glucose. The patient presents to the emergency department with worsening right groin pain, and swelling, initially noted about 1 week ago, but worsened gradually over the last 4 days. He reports that there was some bloody drainage, however, in the emergency department, he was noted to have a more significant spontaneous drainage occur, which was cultured. He is going to see his PCP today, however, he was referred to the ED for evaluation. He does report some general fatigue and achiness. He and his report that they do go camping in the [facility] on a weekly basis. Tick panel has been ordered and pending. Allergies Allergy/AdvReac Type Severity Reaction Status Date / Time No Known Allergies Allergy Verified 11/25/24 19:55 Home Medications Medication Instructions Recorded Confirmed Type aspirin 81 mg tablet 81 mg PO QAM 03/08/21 11/25/24 History atenolol 50 mg tablet 50 mg PO QAM #90 tabs 02/08/24 11/25/24 Rx atorvastatin 80 mg tablet (Lipitor) 80 mg PO QAM #90 tabs 02/08/24 11/25/24 Rx celecoxib 200 mg capsule 200 mg PO QAM #90 caps 02/08/24 11/25/24 Rx omeprazole 20 mg capsule,delayed 20 mg PO QAM #90 caps 02/08/24 11/25/24 Rx release valsartan 80 mg tablet 80 mg PO QAM #90 tabs 02/08/24 11/25/24 Rx Past Med/Surg History Problem List (Updated 11/25/24 @ 22:09 by Gem Mayen MD) Abscess of groin, right (Acute) 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/04/2023 Anemia BMI 39.0-39.9,adult Degenerative joint disease of knee, right Encounter for pre-operative examination Positive colorectal cancer screening using Cologuard test Neuropathy of both feet Class 2 obesity with body mass index (BMI) of 37.0 to 37.9 in adult (Chronic) Impaired fasting glucose 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 Tremor GERD without esophagitis (Chronic) Hypertension (Chronic) Hypercholesterolemia (Chronic) Medical History History of blood transfusion History of diverticulitis History of COVID-19 Pneumonia History of colon polyps Sensorineural hearing loss (SNHL) of both ears Pulmonary emboli (~2020) Pancreatic tumor VI (obstructive sleep apnea) Chronic back pain GERD (gastroesophageal reflux disease) Hyperlipidemia Hypertension Surgical History Total knee replacement status H/O Whipple procedure History of esophagogastroduodenoscopy (EGD) History of tonsillectomy History of colonoscopy History of knee replacement Family History Mother Arthritis Cancer Brother Prostate cancer AAA (abdominal aortic aneurysm) Cancer Other No family history of adverse response to anesthesia Denies family history of Ovarian cancer Myocardial infarction Breast cancer Lung cancer Colorectal cancer Social History Smoking Status: Former smoker Tobacco Type: Cigarettes Age Started Using Tobacco: 18; Age Quit Using Tobacco: 38; packs per day: 1; Second Hand Exposure: No; Do You Dip or Chew Tobacco: No; Hx Alcohol Use: Yes Alcohol type: beer and wine Alcohol Intake Frequency: 2-3 x/Week Alcohol Intake Frequency Comment: one day a week, he'll have a few Hx Substance Use: No Preferred Language: [place] Communication Ability: Effective Visual Impairment: No Limitations Hearing Ability: Normal Entry Level Software Engineer Required: No Beliefs That Will Affect Care: None marital status: Current Living Situation: Spouse current occupational status: retired 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 Feels Safe at Home: Yes Childhood Exposure to Second-Hand Smoke: No Diet: regular caffeine: Yes Dental Care, Regularly: No Physical Activity Frequency: Other Physical Activity Frequency Comment: occasional walking, when its nice outside Seatbelt Use: always Sunscreen Use: No Assistive Devices: Walker Review of Systems Review of Systems: The patient denies chest pain, palpitations, shortness of breath, dyspnea on exertion, cough, sore throat, fevers, chills, sweats, nausea, vomiting, diarrhea , constipation, abdominal pain, pelvic pain, blood in urine or stool, dysuria, urinary frequency or urgency, lightheadedness, dizziness, headache, memory loss, loss of consciousness, imbalance, focal or generalized weakness, numbness or tingling in arms, back or neck pain. The review of systems is otherwise negative other than for that already noted above, and at least 10 systems have been reviewed. Physical Exam Physical Exam: The patient is awake, alert and oriented 3, well developed and well nourished, normocephalic and atraumatic, lying in bed and in no acute distress. HEENT--PERRL, EOMI, mucous membranes and oropharynx mildly dry. Neck--supple. No JVD. No bruits. Thyroid normal, trachea midline, no adenopathy. Heart--normal S1 and S2. No murmurs, rubs or gallops. Lungs--clear bilaterally, no respiratory distress, no accessory muscle use. Abdomen--normal bowel sounds and soft. Nontender. Nondistended, no hernias or masses, no organomegaly. Extremities--no cyanosis or clubbing. No edema. There are good distal pulses b/l. Dermatologic--normal except for right groin and inguinal region swelling, erythema and tenderness Neurologic--cranial nerves II through XII grossly intact. Rheumatologic--normal range of motion, except for mild limitation due to right groin pain Psychiatric--normal affect. Results & Data Results & Data Vital Signs (Past 12 Hours) Vital Signs Temp Pulse Pulse Resp BP BP Pulse Ox 11/25/24 23:00 68 19 160/92 H 94 11/25/24 22:59 66 11/25/24 22:39 65 24 145/84 H 93 11/25/24 21:30 67 22 145/77 H 93 11/25/24 21:00 67 22 123/79 92 11/25/24 20:33 74 18 170/78 H 93 11/25/24 19:36 75 22 165/90 H 93 11/25/24 19:17 76 11/25/24 19:00 149/84 H 11/25/24 18:49 71 22 158/70 H 94 11/25/24 17:24 37 C 77 22 194/85 H 93 O2 Del Method 11/25/24 23:00 Room Air 11/25/24 22:59 11/25/24 22:39 Room Air 11/25/24 21:30 Room Air 11/25/24 21:00 Room Air 11/25/24 20:33 Room Air 11/25/24 19:36 Room Air 11/25/24 19:17 11/25/24 19:00 11/25/24 18:49 Room Air 11/25/24 17:24 Room Air Laboratory Results Laboratory Results WBC 9.63 K/ul (4.8-10.8) 11/25/24 18:40 RBC 4.96 M/uL (4.70-6.10) 11/25/24 18:40 Hgb 15.1 g/dl (14.0-18.0) 11/25/24 18:40 Hct 44.9 % (42.0-52.0) 11/25/24 18:40 MCV 90.5 fL (80.0-100.0) 11/25/24 18:40 MCH 30.4 pg (25.0-34.0) 11/25/24 18:40 MCHC 33.6 g/dL (32.0-36.0) 11/25/24 18:40 RDW Std Deviation 41.8 fL (36.4-46.3) 11/25/24 18:40 RDW Coeff of Capo 12.7 % (11.5-14.5) 11/25/24 18:40 Plt Count 186 K/uL (130-400) 11/25/24 18:40 MPV 9.4 fL (9.4-12.4) 11/25/24 18:40 Immature Gran % (Auto) 0.2 % 11/25/24 18:40 Neut % (Auto) 76.8 % 11/25/24 18:40 Lymph % (Auto) 12.5 % 11/25/24 18:40 [place] % (Auto) 9.0 % 11/25/24 18:40 Eos % (Auto) 1.2 % 11/25/24 18:40 Baso % (Auto) 0.3 % 11/25/24 18:40 Neut # (Auto) 7.39 K/uL (1.40-6.50) H 11/25/24 18:40 Lymph # (Auto) 1.20 K/uL (1.20-3.40) 11/25/24 18:40 [place] # (Auto) 0.87 K/uL (0.11-0.59) H 11/25/24 18:40 Eos # (Auto) 0.12 K/uL (0.00-0.50) 11/25/24 18:40 Baso # (Auto) 0.03 K/uL (0.00-0.20) 11/25/24 18:40 Immature Gran # (Auto) 0.02 K/uL (0.01-0.20) 11/25/24 18:40 ESR 31 mm/hr (0-20) H 11/25/24 18:40 PT 11.2 Seconds (9.0-12.0) 11/25/24 18:40 INR 1.0 (0.9-1.1) 11/25/24 18:40 APTT 27 Seconds (21-31) 11/25/24 18:40 PTT Ratio 1.0 11/25/24 18:40 Sodium 139 mmol/L (136-145) 11/25/24 18:40 Potassium 4.0 mmol/L (3.5-5.1) 11/25/24 18:40 Chloride 105 mmol/L (98-107) 11/25/24 18:40 Carbon Dioxide 27 mmol/L (21-32) 11/25/24 18:40 Anion Gap 7 (3-11) 11/25/24 18:40 BUN 12 mg/dl (6-23) 11/25/24 18:40 Creatinine 0.73 mg/dl (0.6-1.4) 11/25/24 18:40 Est Cr Clr Drug Dosing 104.0 ml/min 11/25/24 18:40 eGFR 93.71 11/25/24 18:40 BUN/Creatinine Ratio 16.4 (10-20) 11/25/24 18:40 Glucose 102 mg/dl (70-99(Fasting)) H 11/25/24 18:40 Lactate 1.2 mmol/L (0.4-2.0) 11/25/24 18:40 Calcium 9.1 mg/dl (8.6-10.3) 11/25/24 18:40 Total Bilirubin 1.6 mg/dl (0.2-1.0) H 11/25/24 18:40 AST 15 U/L (13-39) 11/25/24 18:40 ALT 14 U/L (7-52) 11/25/24 18:40 Alkaline Phosphatase 100 U/L (34-104) 11/25/24 18:40 C-Reactive Protein 6.03 mg/dl (0-0.5) H 11/25/24 18:40 Total Protein 7.1 gm/dl (6.0-8.3) 11/25/24 18:40 Albumin 3.8 gm/dl (3.4-5.0) 11/25/24 18:40 Globulin 3.3 gm/dl (2.5-4.0) 11/25/24 18:40 Albumin/Globulin Ratio 1.2 (0.9-2) 11/25/24 18:40 Procalcitonin 0.05 ng/ml (0-0.5) 11/25/24 18:40 Impressions Abdomen/Pelvis CT 11/25/24 17:59 Exam(s): CT ABDOMEN + PELVIS With Contrast IV Amt: 93 CC OPTI 320 EXAM: CT Abdomen and Pelvis With Intravenous Contrast CLINICAL HISTORY: Reason for exam: scrotal swelling. TECHNIQUE: Axial computed tomography images of the abdomen and pelvis with intravenous contrast. CTDI is 27.56 mGy and DLP is 1606.33 mGy-cm. Automated exposure control was utilized for the study. A dose lowering technique was utilized adhering to the principles of ALARA. CONTRAST: Patient received 93 CC OPTI 320 of IV contrast COMPARISON: 07/10/2020 FINDINGS: ABDOMEN: Liver: Unremarkable. Gallbladder and bile ducts: Cholecystectomy. Pneumobilia. Pancreas: Unremarkable. Spleen: Unremarkable. Adrenals: Unremarkable. Kidneys and ureters: Unremarkable. No obstructing stones. No hydronephrosis. Stomach and bowel: Colonic diverticulosis without acute diverticulitis. PELVIS: Appendix: No findings to suggest acute appendicitis. Bladder: Unremarkable. Reproductive: Unremarkable as visualized. ABDOMEN and PELVIS: Intraperitoneal space: Unremarkable. No free air. No significant fluid collection. Bones/joints: Advanced degenerative changes in the spine. Soft tissues: Fluid collection in the right groin subcutaneous fat measuring 3.5 x 2.2 cm. Vasculature: Unremarkable. Lymph nodes: Unremarkable. IMPRESSION: Fluid collection in the right groin subcutaneous fat measuring 3.5 x 2. 2 cm. Abscess can have this appearance in the appropriate clinical setting. Electronically signed by: Sam Peña MD 11/25/24 21:03 PM Soft Tissue Ultrasound 11/25/24 18:46 Exam(s): US SOFT TISSUE EXAM: US Abdomen Limited CLINICAL HISTORY: Reason for exam: R groin wound; r/o abscess. TECHNIQUE: Real-time ultrasound of the soft tissues of the right groin with image documentation. COMPARISON: No relevant prior studies available. FINDINGS: Soft tissues: Complex fluid collection just deep to the skin surface measuring 3.4 x 2.2 x 2.3 cm consistent with abscess. Surrounding hyperemia. IMPRESSION: Complex fluid collection measuring 3.4 x 2.2 x 2.3 cm consistent with abscess. Electronically signed by: Sam Peña MD 11/25/24 22:51 PM Code Status & VTE Plan Code Status Full code VTE Prophylaxis Plan VTE Prophylaxis will be ordered: Yes PG Care Time/CCT Total # of Minutes Spent Total Time Spent with Patient: Total time spent is greater than 50% in coordination of care (as documented) at patient's floor/unit and/or counseling patient: Coding Level of Care Code 87651 INT INP/OBS CARE 3/75MIN Diagnoses Abscess of groin, right L02.214 Neuropathy of both feet G57.93 Essential hypertension I10 Hypertension type: essential hypertension GERD without esophagitis K21.9 (3) Hypertension Hypertension type: essential hypertension Qualified Code(s): I10 - Essential (primary) hypertension
[2024-11-26] MEDS ORDERED: HYDROCODONE/ACETAMOPHEN 5/325MG TAB PO PRN (00:56)
[2024-11-26] MEDS ORDERED: ONDANSETRON INJ 2 MG/ML 2 ML VIAL IV PRN (00:56)
[2024-11-26] MEDS ORDERED: VANCOMYCIN CONSULT ACTIVE PRN (00:56)
[2024-11-26] MEDS ORDERED: ACETAMINOPHEN 325 MG TAB PO PRN (00:56)
[2024-11-26] MEDS: LACTATED RINGER'S 1,000 ML IV SCH (01:45)
[2024-11-26] MEDS: PIPERACILLIN/TAZOBACTAM 4.5 GM/100 ML BAG IV SCH (02:07)
[2024-11-26] MEDS: MoRPHine SULFATE 2 MG/ML CARP IV PRN (04:25)
[2024-11-26 04:35] LABS: Hematocrit (blood only) 40.9 % (42.0-52.0); Hemoglobin 13.4 g/dl (14.0-18.0); Immature Granulocytes # (auto) 0.02 K/uL (0.01-0.20); Immature Granulocytes % (auto) 0.3 %; Mean Corpuscular Hemoglobin 29.9 pg (25.0-34.0); Mean Corpuscular Volume 91.3 fL (80.0-100.0); Platelet Count 167 K/uL (130-400); RDW Standard Deviation 42.5 fL (36.4-46.3); Red Blood Count 4.48 M/uL (4.70-6.10); White Blood Count 7.79 K/ul (4.8-10.8)
[2024-11-26 04:53] LABS: Alanine Aminotransferase 12.0 U/L (7-52); Albumin Globulin Ratio 1.2 (0.9-2); Alkaline Phosphatase 92.0 U/L (34-104); Anion Gap 8.0 (3-11); Bilirubin,Total 1.5 mg/dl (0.2-1.0); Blood Urea Nitrogen 11.0 mg/dl (6-23); Calcium 8.7 mg/dl (8.6-10.3); Carbon Dioxide 27.0 mmol/L (21-32); Chloride 105.0 mmol/L (98-107); Creatinine Clr Calc Pharmacy 108.5 ml/min; Globulin 2.9 gm/dl (2.5-4.0); Glucose 131.0 mg/dl (70-99(Fasting)); Magnesium 1.9 mg/dl (1.7-2.4); Potassium 3.6 mmol/L (3.5-5.1); Sodium 140.0 mmol/L (136-145); Total Protein 6.3 gm/dl (6.0-8.3)
[2024-11-26 04:58] LABS: Polychromasia 1+
--- NOTE | 2024-11-26 08:10 | Pharmacy Report ---
Pharmacy PK ABX Note - Date of Service November 26, 2024 - Assessment and Plan Assessment 79 year old M receiving vancomycin and Zosyn for treatment of groin abscess. Pertinent microbiologic data includes: blood cultures pending. Day # 2 of antimicrobial therapy. Plan Vancomycin * Loading dose: 2500 mg IV x 1 * Maintenance dose: 1500 mg IV every 12 hours * Regimen is predicted to achieve target AUC/HERRERA of 400-600 mg/L.hr * Random level ordered for: 11/27/24 with AM labs Pharmacy will continue to follow and will adjust dose/frequency as necessary. Thank you. Pharmacy has transitioned to AUC monitoring for vancomycin. AUC/HERRERA is the preferred PK/PD target and is associated with decreased risk of nephrotoxicity compared to traditional trough targets.
[2024-11-26] MEDS ORDERED: CeleBREX 200 MG CAP PO SCH (09:00)
[2024-11-26] MEDS ORDERED: ASPIRIN 81 MG ECTAB PO SCH (09:00)
[2024-11-26] MEDS: ATORVASTATIN 40 MG TAB PO SCH (09:22)
[2024-11-26] MEDS: VALSARTAN 80 MG TAB PO SCH (09:23)
--- NOTE | 2024-11-26 09:23 | Surgery Consultation ---
Date of Consultation November 26, 2024 Assessment & Plan (1) Abscess of groin, right: (2) Cellulitis of right groin: Plan 79 yo male with 4 day history of small lump in right groin with increasing swelling and pain. CT and ultrasound consistent with small 3 x 2 cm abscess. Spontaneously opened and drained. Moderate associated cellulitis. No necrosis but mild duskiness of skin surrounding the open wound. No need for surgical intervention given spontaneous drainage but will require wound care and may require debridement if there is any skin necrosis. Wound compresses, dressing changes as needed to keep area clean and dry (mesh underwear to keep in place), IV antibiotics, pain management as needed, will continue to follow. Discussed with Dr. Deng who agrees with above. History of Present Illness Reason for Consultation: right groin abscess Requesting Physician: Dr. Morales Attending Physician: Katiana Silva DO History of Present Illness Mr. Sorto is 79 yo male who presented to ED with worsening swelling and pain in right groin. First noticed small pimple in the right groin about 4 days ago and then started increasing in size with pain and swelling. States the area opened up on its own yesterday during ct imaging and has been draining since. Moderate to severe tenderness. No fever or chills. Camps every weekend so unsure if he was bit by inset/tick. States the area is much smaller since it drained and feeling better but still have moderate pain. Allergies Allergy/AdvReac Type Severity Reaction Status Date / Time No Known Allergies Allergy Verified 11/25/24 19:55 Home Medications Medication Instructions Recorded Confirmed Type aspirin 81 mg tablet 81 mg PO QAM 03/08/21 11/25/24 History atenolol 50 mg tablet 50 mg PO QAM #90 tabs 02/08/24 11/25/24 Rx atorvastatin 80 mg tablet (Lipitor) 80 mg PO QAM #90 tabs 02/08/24 11/25/24 Rx celecoxib 200 mg capsule 200 mg PO QAM #90 caps 02/08/24 11/25/24 Rx omeprazole 20 mg capsule,delayed 20 mg PO QAM #90 caps 02/08/24 11/25/24 Rx release valsartan 80 mg tablet 80 mg PO QAM #90 tabs 02/08/24 11/25/24 Rx Patient History Medical History History of blood transfusion History of diverticulitis History of COVID-19 Pneumonia History of colon polyps Sensorineural hearing loss (SNHL) of both ears Pulmonary emboli (~2020) Pancreatic tumor VI (obstructive sleep apnea) Chronic back pain GERD (gastroesophageal reflux disease) Hyperlipidemia Hypertension Surgical History Total knee replacement status H/O Whipple procedure History of esophagogastroduodenoscopy (EGD) History of tonsillectomy History of colonoscopy History of knee replacement Family History Mother Arthritis Cancer Brother Prostate cancer AAA (abdominal aortic aneurysm) Cancer Other No family history of adverse response to anesthesia Denies family history of Ovarian cancer Myocardial infarction Breast cancer Lung cancer Colorectal cancer Social History Smoking Status: Former smoker Tobacco Type: Cigarettes Age Started Using Tobacco: 18; Age Quit Using Tobacco: 38; packs per day: 1; Second Hand Exposure: No; Do You Dip or Chew Tobacco: No; Hx Alcohol Use: Yes Alcohol type: beer and wine Alcohol Intake Frequency: 2-3 x/Week Alcohol Intake Frequency Comment: one day a week, he'll have a few Hx Substance Use: No Preferred Language: Welsh Communication Ability: Effective Visual Impairment: No Limitations Hearing Ability: Normal Grain Operations Manager Required: No Beliefs That Will Affect Care: None marital status: Current Living Situation: Spouse current occupational status: retired 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 Feels Safe at Home: Yes Childhood Exposure to Second-Hand Smoke: No Diet: regular caffeine: Yes Dental Care, Regularly: No Physical Activity Frequency: Other Physical Activity Frequency Comment: occasional walking, when its nice outside Seatbelt Use: always Sunscreen Use: No Assistive Devices: Walker Physical Exam Constitutional: WD/WN, vitals as above + obese, cooperative and comfortable; no acute distress and not ill appearing Respiratory: normal respiratory effort; no respiratory distress and no labored breathing Gastrointestinal (Abdomen): Inspection/Auscultation: abdomen normal to inspection; abdomen not distended Right groin: there is moderate cellulitis of the right groin with small 0.5 cm opening with bloody drainage. There is surrounding erythema and induration. No flutuance no crepitus. Mild duskiness to the surrounding skin of the open wound however no dry gangrene. Skin: no rashes, warm and dry Psychiatric: Orientation: alert and oriented x 3 Results & Data Vital Signs (Past 12 Hours) Vital Signs Pulse Pulse Pulse Resp BP BP Pulse Ox 11/26/24 07:36 11/26/24 07:07 68 11/26/24 07:00 66 16 137/83 94 11/26/24 05:43 63 20 138/83 94 11/26/24 01:51 68 11/26/24 01:06 75 21 138/74 93 11/26/24 00:33 69 20 145/84 H 94 11/26/24 00:27 71 19 145/84 H 91 11/26/24 00:00 73 16 139/78 93 11/25/24 23:48 67 18 140/77 93 11/25/24 23:42 67 22 140/77 93 11/25/24 23:01 160/92 H 11/25/24 23:00 68 19 160/92 H 94 11/25/24 22:59 66 11/25/24 22:39 65 24 145/84 H 93 11/25/24 21:30 67 22 145/77 H 93 Pulse Ox O2 Del Method O2 Del Method 11/26/24 07:36 94 Room Air 11/26/24 07:07 11/26/24 07:00 Room Air 11/26/24 05:43 Room Air 11/26/24 01:51 11/26/24 01:06 Room Air 11/26/24 00:33 Room Air 11/26/24 00:27 Room Air 11/26/24 00:00 Room Air 11/25/24 23:48 Room Air 11/25/24 23:42 Room Air 11/25/24 23:01 11/25/24 23:00 Room Air 11/25/24 22:59 11/25/24 22:39 Room Air 11/25/24 21:30 Room Air Laboratory Results 11/26/24 11/25/24 Range/Units 03:17 18:40 WBC 7.79 9.63 (4.8-10.8) K/ul RBC 4.48 L 4.96 (4.70-6.10) M/uL Hgb 13.4 L 15.1 (14.0-18.0) g/dl Hct 40.9 L 44.9 (42.0-52.0) % MCV 91.3 90.5 (80.0-100.0) fL MCH 29.9 30.4 (25.0-34.0) pg MCHC 32.8 33.6 (32.0-36.0) g/dL RDW Std Deviation 42.5 41.8 (36.4-46.3) fL RDW Coeff of Capo 12.8 12.7 (11.5-14.5) % Plt Count 167 186 (130-400) K/uL MPV 10.0 9.4 (9.4-12.4) fL Immature Gran % (Auto) 0.3 0.2 % Neut % (Auto) 72.0 76.8 % Lymph % (Auto) 13.2 12.5 % [place] % (Auto) 11.6 9.0 % Eos % (Auto) 2.3 1.2 % Baso % (Auto) 0.6 0.3 % Neut # (Auto) 5.61 7.39 H (1.40-6.50) K/uL Lymph # (Auto) 1.03 L 1.20 (1.20-3.40) K/uL [place] # (Auto) 0.90 H 0.87 H (0.11-0.59) K/uL Eos # (Auto) 0.18 0.12 (0.00-0.50) K/uL Baso # (Auto) 0.05 0.03 (0.00-0.20) K/uL Immature Gran # (Auto) 0.02 0.02 (0.01-0.20) K/uL Polychromasia 1+ Echinocytes 1+ ESR 31 H (0-20) mm/hr PT 11.2 (9.0-12.0) Seconds INR 1.0 (0.9-1.1) APTT 27 (21-31) Seconds PTT Ratio 1.0 Sodium 140 139 (136-145) mmol/L Potassium 3.6 4.0 (3.5-5.1) mmol/L Chloride 105 105 (98-107) mmol/L Carbon Dioxide 27 27 (21-32) mmol/L Anion Gap 8 7 (3-11) BUN 11 12 (6-23) mg/dl Creatinine 0.70 0.73 (0.6-1.4) mg/dl Est Cr Clr Drug Dosing 108.5 104.0 ml/min eGFR 94.90 93.71 BUN/Creatinine Ratio 15.7 16.4 (10-20) Glucose 131 H 102 H (70-99(Fasting)) mg/dl Lactate 1.2 (0.4-2.0) mmol/L Calcium 8.7 9.1 (8.6-10.3) mg/dl Magnesium 1.9 (1.7-2.4) mg/dl Total Bilirubin 1.5 H 1.6 H (0.2-1.0) mg/dl AST 13 15 (13-39) U/L ALT 12 14 (7-52) U/L Alkaline Phosphatase 92 100 (34-104) U/L C-Reactive Protein 6.03 H (0-0.5) mg/dl Total Protein 6.3 7.1 (6.0-8.3) gm/dl Albumin 3.4 3.8 (3.4-5.0) gm/dl Globulin 2.9 3.3 (2.5-4.0) gm/dl Albumin/Globulin Ratio 1.2 1.2 (0.9-2) Procalcitonin 0.05 (0-0.5) ng/ml Anaplasma Smear See Comment A. phagocytophilum DNA Pending Babesia Smear See Comment Babesia microti DNA PCR Pending Lyme Disease Screen Negative (Negative) Ehrlichia DNA (PCR) Pending Diagnostic Findings Exam(s): CT ABDOMEN + PELVIS With Contrast IV Amt: 93 CC OPTI 320 EXAM: CT Abdomen and Pelvis With Intravenous Contrast CLINICAL HISTORY: Reason for exam: scrotal swelling. TECHNIQUE: Axial computed tomography images of the abdomen and pelvis with intravenous contrast. CTDI is 27.56 mGy and DLP is 1606.33 mGy-cm. Automated exposure control was utilized for the study. A dose lowering technique was utilized adhering to the principles of ALARA. CONTRAST: Patient received 93 CC OPTI 320 of IV contrast COMPARISON: 07/10/2020 FINDINGS: ABDOMEN: Liver: Unremarkable. Gallbladder and bile ducts: Cholecystectomy. Pneumobilia. Pancreas: Unremarkable. Spleen: Unremarkable. Adrenals: Unremarkable. Kidneys and ureters: Unremarkable. No obstructing stones. No hydronephrosis. Stomach and bowel: Colonic diverticulosis without acute diverticulitis. PELVIS: Appendix: No findings to suggest acute appendicitis. Bladder: Unremarkable. Reproductive: Unremarkable as visualized. ABDOMEN and PELVIS: Intraperitoneal space: Unremarkable. No free air. No significant fluid collection. Bones/joints: Advanced degenerative changes in the spine. Soft tissues: Fluid collection in the right groin subcutaneous fat measuring 3.5 x 2.2 cm. Vasculature: Unremarkable. Lymph nodes: Unremarkable. IMPRESSION: Fluid collection in the right groin subcutaneous fat measuring 3.5 x 2. 2 cm. Abscess can have this appearance in the appropriate clinical setting. Exam(s): US SOFT TISSUE EXAM: US Abdomen Limited CLINICAL HISTORY: Reason for exam: R groin wound; r/o abscess. TECHNIQUE: Real-time ultrasound of the soft tissues of the right groin with image documentation. COMPARISON: No relevant prior studies available. FINDINGS: Soft tissues: Complex fluid collection just deep to the skin surface measuring 3.4 x 2.2 x 2.3 cm consistent with abscess. Surrounding hyperemia. IMPRESSION: Complex fluid collection measuring 3.4 x 2.2 x 2.3 cm consistent with abscess.
[2024-11-26] MEDS: ATENOLOL 50 MG TABLET PO SCH (09:24)
[2024-11-26] MEDS ORDERED: VANCOMYCIN HCL 1,750 MG in SODIUM CHLORIDE 0.9% 500 ML IV SCH (10:00)
[2024-11-26] MEDS: VANCOMYCIN HCL 1,500 MG in SODIUM CHLORIDE 0.9% 500 ML IV SCH (10:15)
--- NOTE | 2024-11-26 16:06 | Hospitalist Progress Note ---
Date of Service November 26, 2024 Assessment & Plan (1) Abscess of groin, right: (2) Neuropathy of both feet: (3) Hypertension: (4) GERD without esophagitis: Plan The patient is a 79-year-old male with past medical history including pre- diabetes, neuropathy of both feet, GERD, esophagitis insulinoma s/p whiipple, history of right TKA, HTN on 11/25/2024. The patient presents to the ED with worsening right groin pain, and swelling, initially noted about 1 week ago, but worsened gradually over the last 4 days. He reports that there was some bloody drainage, however, in the emergency department, he was noted to have a more significant spontaneous drainage occur, which was cultured. He is going to see his PCP today, however, he was referred to the ED for evaluation. He does report some general fatigue and achiness. He and his report that they do go camping in the [place] on a weekly basis. Tick panel has been ordered and pending. Right groin abscess- Given vancomycin IV, clindamycin IV and Zosyn IV in ED surgery team following, they are deferring immediate drainage Admit on vancomycin IV and Zosyn IV Acetaminophen 650 mg by mouth every 6 hours as needed for mild pain or fever Hudson 5/325, q6h as needed for moderate pain Morphine 2 mg IV q3h as needed for severe pain LR at 80 mL/h x 1 L Serial CBC with differential, chemistry profile and magnesium Hypertension- Atenolol 50 mg p.o. and valsartan every morning with hold parameters Hold aspirin Hyperlipidemia- Continue atorvastatin GERD without esophagitis- Change omeprazole to pantoprazole per formulary interchange Right knee OA/TKA- Hold Celebrex Admission and Anticipated Discharge Date Admission Date: November 25, 2024 Subjective he has right groin abscess, on IV antibiotics surgery team following no fever; no chill denied any hx of laceration, abrasion to his right groin denied any shaving activity updated at bedside Review of Systems Review of Systems: Constitutional: No Weight Change, No Fever, No Chills, No Night Sweats, No Fatigue, No Malaise Cardiovascular: No Chest Pain, No SOB, No PND, No Dyspnea on Exertion, No Orthopnea, No Claudication, No Edema, No Palpitations Respiratory: No Cough, No Sputum, No Wheezing, No Smoke Exposure, No Dyspnea Gastrointestinal: No Nausea, No Vomiting, No Diarrhea, No Constipation, No Pain, No Heartburn, No Anorexia, No Dysphagia, No Hematochezia, No Melena, No Flatulence, No Jaundice Musculoskeletal: No Arthralgias, No Myalgias, No Joint Swelling, No Joint Stiffness, No Back Pain, No Neck Pain, No Injury History + for hx of knee replacement. dermatology: for right groin discharge. Psych: No Anxiety/Panic, No Depression, No Insomnia, No Personality Changes, No Delusions, No Rumination, No SI/HI/AH/VH, No Social Issues, No Memory Changes, No Violence/Abuse Hx., No Eating Concerns Physical Exam Physical Exam: VITALS: Reviewed. WEIGHT/BMI reviewed. GEN: Healthy appearing, well-developed, NAD. -Head: NC/AT; -Eyes: PERRL, EOMI. No discharge or redn ess; -Ears: External ears are normal. Normal TMs. -Nose: Normal nares. -Mouth and throat: MMM. Normal gums, muc warren, palate,. Good dentition. CV: RRR, no m/r/g. LUNGS: CTAB, no w/r/c. ABD: Soft, NT/ND, NBS, no masses or organomegaly. : N/A SKIN: + for right groin discharge; induration noted. MSK: No deformities, Normal gait. EXT: No clubbing, cyanosis, or edema. NEURO: AAOx3 Results & Data Results & Data Vital Signs (Past 12 Hours) Vital Signs Temp Pulse Pulse Pulse Resp BP Pulse Ox 11/26/24 15:37 36.6 C 60 156/82 H 94 11/26/24 14:57 60 27 H 139/79 94 11/26/24 11:35 67 21 144/82 H 94 11/26/24 10:00 72 21 160/78 H 91 11/26/24 10:00 74 15 160/78 H 93 11/26/24 07:36 11/26/24 07:07 68 11/26/24 07:00 66 16 137/83 94 11/26/24 05:43 63 20 138/83 94 Pulse Ox O2 Del Method O2 Del Method 11/26/24 15:37 Room Air 11/26/24 14:57 Room Air 11/26/24 11:35 Room Air 11/26/24 10:00 Room Air 11/26/24 10:00 Room Air 11/26/24 07:36 94 Room Air 11/26/24 07:07 11/26/24 07:00 Room Air 11/26/24 05:43 Room Air Laboratory Results Laboratory Results - last 72 hr 11/25/24 11/26/24 18:40 03:17 WBC 9.63 7.79 RBC 4.96 4.48 L Hgb 15.1 13.4 L Hct 44.9 40.9 L MCV 90.5 91.3 MCH 30.4 29.9 MCHC 33.6 32.8 RDW Std Deviation 41.8 42.5 RDW Coeff of Capo 12.7 12.8 Plt Count 186 167 MPV 9.4 10.0 Immature Gran % (Auto) 0.2 0.3 Neut % (Auto) 76.8 72.0 Lymph % (Auto) 12.5 13.2 Isabella % (Auto) 9.0 11.6 Eos % (Auto) 1.2 2.3 Baso % (Auto) 0.3 0.6 Neut # (Auto) 7.39 H 5.61 Lymph # (Auto) 1.20 1.03 L Isabella # (Auto) 0.87 H 0.90 H Eos # (Auto) 0.12 0.18 Baso # (Auto) 0.03 0.05 Immature Gran # (Auto) 0.02 0.02 Polychromasia 1+ Echinocytes 1+ ESR 31 H PT 11.2 INR 1.0 APTT 27 PTT Ratio 1.0 Sodium 139 140 Potassium 4.0 3.6 Chloride 105 105 Carbon Dioxide 27 27 Anion Gap 7 8 BUN 12 11 Creatinine 0.73 0.70 Est Cr Clr Drug Dosing 104.0 108.5 eGFR 93.71 94.90 BUN/Creatinine Ratio 16.4 15.7 Glucose 102 H 131 H Lactate 1.2 Calcium 9.1 8.7 Magnesium 1.9 Total Bilirubin 1.6 H 1.5 H AST 15 13 ALT 14 12 Alkaline Phosphatase 100 92 C-Reactive Protein 6.03 H Total Protein 7.1 6.3 Albumin 3.8 3.4 Globulin 3.3 2.9 Albumin/Globulin Ratio 1.2 1.2 Procalcitonin 0.05 Anaplasma Smear See Comment Babesia Smear See Comment Lyme Disease Screen Negative Medications Administered Current Inpatient Medications Acetaminophen (Acetaminophen 325 Mg Tab) 650 mg PO Q4H PRN PRN Reason: Pain or Fever Stop: 12/26/24 00:55 Hydrocodone Bitart/Acetaminophen (Hydrocodone/Acetamophen 5/325mg Tab) 1 tab PO Q6H PRN PRN Reason: Moderate Pain (Scale 4, 5, 6) Stop: 12/10/24 00:55 Atenolol (Atenolol 50 Mg Tablet) 50 mg PO [facility] Stop: 12/26/24 08:59 Last Admin: 11/26/24 09:24 Dose: 50 mg Atorvastatin Calcium (Atorvastatin 40 Mg Tab) 80 mg PO [facility] Stop: 12/26/24 08:59 Last Admin: 11/26/24 09:22 Dose: 80 mg Piperacillin Sod/Tazobactam Sod (Zosyn) 4.5 gm in 100 mls @ 25 mls/hr IV Q8H [facility]; Protocol Stop: 12/03/24 01:59 Last Admin: 11/26/24 10:16 Dose: 25 mls/hr Vancomycin HCl 1,500 mg/ (Sodium Chloride) 530 mls @ 200 mls/hr IV Q12H [facility] Stop: 12/03/24 07:59 Last Infusion: 11/26/24 14:22 Dose: Infused Miscellaneous Information (Vancomycin Consult Active) 1 each N/A UD PRN PRN Reason: Consult Stop: 12/26/24 00:55 Morphine Sulfate (Morphine Sulfate 2 Mg/Ml Carp) 2 mg IV Q3H PRN PRN Reason: Severe Pain (Scale 7, 8, 9,10) Stop: 12/10/24 00:55 Last Admin: 11/26/24 04:25 Dose: 2 mg Ondansetron HCl (Ondansetron Inj 2 Mg/Ml 2 Ml Vial) 4 mg IV Q6H PRN PRN Reason: NAUSEA/VOMITING Stop: 12/26/24 00:55 Pantoprazole Sodium (Pantoprazole 40 Mg Tab) 40 mg PO [facility] Stop: 12/26/24 08:59 Last Admin: 11/26/24 09:23 Dose: 40 mg Valsartan (Valsartan 80 Mg Tab) 80 mg PO [facility] Stop: 12/26/24 08:59 Last Admin: 11/26/24 09:23 Dose: 80 mg PG Care Time/CCT Total # of Minutes Spent Total Time Spent with Patient: Total time spent is greater than 50% in coordination of care (as documented) at patient's floor/unit and/or counseling patient: Coding Level of Care Code 06668 SUB INP/OBS CARE 04/13MIN Diagnoses Abscess of groin, right L02.214 Neuropathy of both feet G57.93 Essential hypertension I10 Hypertension type: essential hypertension GERD without esophagitis K21.9 Time Spent (min) 25 (3) Hypertension Hypertension type: essential hypertension Qualified Code(s): I10 - Essential (primary) hypertension
[2024-11-27 06:01] LABS: Hematocrit (blood only) 41.8 % (42.0-52.0); Hemoglobin 13.6 g/dl (14.0-18.0); Immature Granulocytes # (auto) 0.01 K/uL (0.01-0.20); Immature Granulocytes % (auto) 0.1 %; Mean Corpuscular Hemoglobin 29.6 pg (25.0-34.0); Mean Corpuscular Volume 90.9 fL (80.0-100.0); Platelet Count 171 K/uL (130-400); RDW Standard Deviation 41.7 fL (36.4-46.3); Red Blood Count 4.60 M/uL (4.70-6.10); White Blood Count 7.13 K/ul (4.8-10.8)
[2024-11-27 06:17] LABS: Alanine Aminotransferase 12.0 U/L (7-52); Albumin Globulin Ratio 1.2 (0.9-2); Alkaline Phosphatase 80.0 U/L (34-104); Anion Gap 5.0 (3-11); Bilirubin,Total 1.2 mg/dl (0.2-1.0); Blood Urea Nitrogen 10.0 mg/dl (6-23); Calcium 8.8 mg/dl (8.6-10.3); Carbon Dioxide 27.0 mmol/L (21-32); Chloride 107.0 mmol/L (98-107); Creatinine Clr Calc Pharmacy 95.9 ml/min; Globulin 2.9 gm/dl (2.5-4.0); Glucose 110.0 mg/dl (70-99(Fasting)); Magnesium 1.9 mg/dl (1.7-2.4); Potassium 3.7 mmol/L (3.5-5.1); Sodium 139.0 mmol/L (136-145); Total Protein 6.5 gm/dl (6.0-8.3)
--- NOTE | 2024-11-27 10:29 | Surgery Progress Note ---
Date of Service November 27, 2024 Assessment & Plan (1) Abscess of groin, right: (2) Cellulitis of right groin: Plan 79 yo male with 4 day history of small lump in right groin with increasing swelling and pain. CT and ultrasound consistent with small 3 x 2 cm abscess. Spontaneously opened and drained. Moderate associated cellulitis. No necrosis but mild duskiness of skin surrounding the open wound. No need for surgical intervention given spontaneous drainage but will require wound care and may require debridement if there is any skin necrosis. Wound compresses, dressing changes as needed to keep area clean and dry (mesh underwear to keep in place), IV antibiotics, pain management as needed, will continue to follow. Discussed with Dr. Deng who agrees with above. Admission and Anticipated Discharge Date Admission Date: November 25, 2024 Subjective feeling better , pain not as severe drainage has decreased no fevers or chills tolerating diet Physical Exam Constitutional: cooperative and comfortable; no acute distress and not ill appearing Gastrointestinal (Abdomen): Right groin: There is open wound with some surrounding ischemic changes but no necrosis Surrounding induration has improved. Surrounding erythema still present. Moderately tender to palpation. No fluctuance or crepitus Skin: no rashes, warm and dry Psychiatric: A+Ox3, euthymic affect Results & Data Vital Signs (Past 12 Hours) Vital Signs Temp Pulse Pulse Resp BP Pulse Ox Pulse Ox 11/27/24 07:19 63 11/27/24 07:00 93 11/27/24 06:57 36.4 C L 65 20 147/90 H 93 11/27/24 03:49 36.4 C L 60 18 146/82 H 92 11/26/24 23:49 36.9 C 61 18 154/81 H 96 O2 Del Method O2 Del Method 11/27/24 07:19 11/27/24 07:00 Room Air 11/27/24 06:57 Room Air 11/27/24 03:49 Room Air 11/26/24 23:49 Room Air Laboratory Results 11/27/24 Range/Units 05:27 WBC 7.13 (4.8-10.8) K/ul RBC 4.60 L (4.70-6.10) M/uL Hgb 13.6 L (14.0-18.0) g/dl Hct 41.8 L (42.0-52.0) % MCV 90.9 (80.0-100.0) fL MCH 29.6 (25.0-34.0) pg MCHC 32.5 (32.0-36.0) g/dL RDW Std Deviation 41.7 (36.4-46.3) fL RDW Coeff of Capo 12.7 (11.5-14.5) % Plt Count 171 (130-400) K/uL MPV 9.4 (9.4-12.4) fL Immature Gran % (Auto) 0.1 % Neut % (Auto) 66.8 % Lymph % (Auto) 16.5 % Richardson % (Auto) 10.1 % Eos % (Auto) 5.8 % Baso % (Auto) 0.7 % Neut # (Auto) 4.76 (1.40-6.50) K/uL Lymph # (Auto) 1.18 L (1.20-3.40) K/uL Richardson # (Auto) 0.72 H (0.11-0.59) K/uL Eos # (Auto) 0.41 (0.00-0.50) K/uL Baso # (Auto) 0.05 (0.00-0.20) K/uL Immature Gran # (Auto) 0.01 (0.01-0.20) K/uL Sodium 139 (136-145) mmol/L Potassium 3.7 (3.5-5.1) mmol/L Chloride 107 (98-107) mmol/L Carbon Dioxide 27 (21-32) mmol/L Anion Gap 5 (3-11) BUN 10 (6-23) mg/dl Creatinine 0.79 (0.6-1.4) mg/dl Est Cr Clr Drug Dosing 95.9 ml/min eGFR 91.50 BUN/Creatinine Ratio 12.7 (10-20) Glucose 110 H (70-99(Fasting)) mg/dl Calcium 8.8 (8.6-10.3) mg/dl Magnesium 1.9 (1.7-2.4) mg/dl Total Bilirubin 1.2 H (0.2-1.0) mg/dl AST 14 (13-39) U/L ALT 12 (7-52) U/L Alkaline Phosphatase 80 (34-104) U/L Total Protein 6.5 (6.0-8.3) gm/dl Albumin 3.6 (3.4-5.0) gm/dl Globulin 2.9 (2.5-4.0) gm/dl Albumin/Globulin Ratio 1.2 (0.9-2) Random Vancomycin 14.7 (10-20) mcg/ml
--- NOTE | 2024-11-27 10:40 | Pharmacy Report ---
Pharmacy PK ABX Note - Date of Service November 27, 2024 - Assessment and Plan Assessment 11/27: Day #3 vancomycin * Vanco level drawn this morning was 14.7mcg/mL. This extrapolates to an AUC/HERRERA in the target range. Will continue current vancomycin regimen. * Preliminary blood cultures x 2 from 11/25 are no growth to date. Groin culture from 11/26 is pending. * Abscess spontaneously opened and drained so surgical intervention not indicated. * Patient without leukocytosis, afebrile, and renal function stable at baseline. * He also continues on Zosyn 4.5gm iv q 8 hours. 11/26: 79 year old M receiving vancomycin and Zosyn for treatment of groin abscess. Pertinent microbiologic data includes: blood cultures pending. Day # 2 of antimicrobial therapy. Plan Vancomycin * Vanco level= 14.7mcg/mL this morning which extrapolates to an AUC of 509mg/L.hr. * Continue maintenance dose: 1500 mg IV every 12 hours * Regimen is predicted to achieve target AUC/HERRERA of 400-600 mg/L.hr * Another vancomycin level will be obtained in the next few days or as clinically necessary. Pharmacy will continue to follow and will adjust dose/frequency as necessary. Thank you. Pharmacy has transitioned to AUC monitoring for vancomycin. AUC/HERRERA is the preferred PK/PD target and is associated with decreased risk of nephrotoxicity compared to traditional trough targets.
--- NOTE | 2024-11-27 13:46 | Hospitalist Progress Note ---
Date of Service November 27, 2024 Assessment & Plan (1) Abscess of groin, right: (2) Neuropathy of both feet: (3) Hypertension: (4) GERD without esophagitis: Plan The patient is a 79-year-old male with past medical history including pre- diabetes, neuropathy of both feet, GERD, esophagitis insulinoma s/p whiipple, history of right TKA, HTN on 11/25/2024. The patient presents to the ED with worsening right groin pain, and swelling, initially noted about 1 week ago, but worsened gradually over the last 4 days. He reports that there was some bloody drainage, however, in the emergency department, he was noted to have a more significant spontaneous drainage occur, which was cultured. He is going to see his PCP today, however, he was referred to the ED for evaluation. He does report some general fatigue and achiness. He and his report that they do go camping in the [facility] on a weekly basis. Tick panel has been ordered and pending. Right groin abscess- wound culture positive for proteus mirabilis Given vancomycin IV, clindamycin IV and Zosyn IV in ED surgery team following, they are deferring immediate drainage Admit on vancomycin IV and Zosyn IV Schulenburg 5/325, q6h as needed for moderate pain Morphine 2 mg IV q3h as needed for severe pain LR at 80 mL/h x 1 L review lab, review BMP Hypertension- Atenolol 50 mg p.o. and valsartan every morning with hold parameters Hold aspirin Hyperlipidemia- Continue atorvastatin GERD without esophagitis- Change omeprazole to pantoprazole per formulary interchange Right knee OA/TKA- Hold Celebrex Admission and Anticipated Discharge Date Admission Date: November 25, 2024 Subjective still have hypothermia, still need IV antibiotics no worseniing on the right groin, but surgery requested ongoing monitoring his wound culture is growing proteus mirabilis discussed diagnosis of pre-diabetes no chest pain; no shortness of breath Review of Systems Review of Systems: Constitutional: No Weight Change, No Fever, No Chills, No Night Sweats, No Fatigue, No Malaise ENT/Mouth: No Hearing Changes, No Ear Pain, No Nasal Congestion, No Sinus Pain, No Hoarseness, No sore throat, No Rhinorrhea, No Swallowing Difficulty Eyes: No Eye Pain, No Swelling, No Redness, No Foreign Body, No Discharge, No Vision Changes Cardiovascular: No Chest Pain, No SOB, No PND, No Dyspnea on Exertion, No Orthopnea, No Claudication, No Edema, No Palpitations Respiratory: No Cough, No Sputum, No Wheezing, No Smoke Exposure, No Dyspnea Gastrointestinal: No Nausea, No Vomiting, No Diarrhea, No Constipation, No Pain, No Heartburn, No Anorexia, No Dysphagia, No Hematochezia, No Melena, No Flatulence, No Jaundice Musculoskeletal: no worsening groin pain; + for chronic back pain Skin: No Skin Lesions, No Pruritis, No Hair Changes, No Breast/Skin Changes, No Nipple Discharge Neuro: No Weakness, No Numbness, No Paresthesias, No Loss of Consciousness, No Syncope, No Dizziness, No Headache, No Coordination Changes, No Recent Falls Physical Exam Physical Exam: VITALS: Reviewed. WEIGHT/BMI reviewed. GEN: overweight; non-toxic appearing PSYCH: Good Judgment. AOx3. Normal memory, mood, and affect. HEENT -Head: NC/AT; NECK: Supple, with no masses. CV: RRR, no m/r/g. LUNGS: CTAB, no w/r/c. ABD: Soft, NT/ND, NBS, no masses or organomegaly. : N/A SKIN: Warm, well perfused. No skin rashes or abnormal lesions. MSK: right groin cellulitis. EXT: No clubbing, cyanosis, or edema. NEURO: AAox3 Results & Data Results & Data Vital Signs (Past 12 Hours) Vital Signs Temp Pulse Pulse Resp BP Pulse Ox Pulse Ox 11/27/24 10:54 36.3 C L 55 L 19 144/82 H 91 11/27/24 07:19 63 11/27/24 07:00 93 11/27/24 06:57 36.4 C L 65 20 147/90 H 93 11/27/24 03:49 36.4 C L 60 18 146/82 H 92 O2 Del Method O2 Del Method 11/27/24 10:54 Room Air 11/27/24 07:19 11/27/24 07:00 Room Air 11/27/24 06:57 Room Air 11/27/24 03:49 Room Air Laboratory Results Laboratory Results - last 72 hr 11/25/24 11/26/24 11/27/24 18:40 03:17 05:27 WBC 9.63 7.79 7.13 RBC 4.96 4.48 L 4.60 L Hgb 15.1 13.4 L 13.6 L Hct 44.9 40.9 L 41.8 L MCV 90.5 91.3 90.9 MCH 30.4 29.9 29.6 MCHC 33.6 32.8 32.5 RDW Std Deviation 41.8 42.5 41.7 RDW Coeff of Capo 12.7 12.8 12.7 Plt Count 186 167 171 MPV 9.4 10.0 9.4 Immature Gran % (Auto) 0.2 0.3 0.1 Neut % (Auto) 76.8 72.0 66.8 Lymph % (Auto) 12.5 13.2 16.5 Calvert % (Auto) 9.0 11.6 10.1 Eos % (Auto) 1.2 2.3 5.8 Baso % (Auto) 0.3 0.6 0.7 Neut # (Auto) 7.39 H 5.61 4.76 Lymph # (Auto) 1.20 1.03 L 1.18 L Calvert # (Auto) 0.87 H 0.90 H 0.72 H Eos # (Auto) 0.12 0.18 0.41 Baso # (Auto) 0.03 0.05 0.05 Immature Gran # (Auto) 0.02 0.02 0.01 Polychromasia 1+ Echinocytes 1+ ESR 31 H PT 11.2 INR 1.0 APTT 27 PTT Ratio 1.0 Sodium 139 140 139 Potassium 4.0 3.6 3.7 Chloride 105 105 107 Carbon Dioxide 27 27 27 Anion Gap 7 8 5 BUN 12 11 10 Creatinine 0.73 0.70 0.79 Est Cr Clr Drug Dosing 104.0 108.5 95.9 eGFR 93.71 94.90 91.50 BUN/Creatinine Ratio 16.4 15.7 12.7 Glucose 102 H 131 H 110 H Lactate 1.2 Calcium 9.1 8.7 8.8 Magnesium 1.9 1.9 Total Bilirubin 1.6 H 1.5 H 1.2 H AST 15 13 14 ALT 14 12 12 Alkaline Phosphatase 100 92 80 C-Reactive Protein 6.03 H Total Protein 7.1 6.3 6.5 Albumin 3.8 3.4 3.6 Globulin 3.3 2.9 2.9 Albumin/Globulin Ratio 1.2 1.2 1.2 Procalcitonin 0.05 Random Vancomycin 14.7 Anaplasma Smear See Comment Babesia Smear See Comment Lyme Disease Screen Negative Diagnostic Findings Laboratory Results WBC 7.13 K/ul (4.8-10.8) 11/27/24 05:27 RBC 4.60 M/uL (4.70-6.10) L 11/27/24 05:27 Hgb 13.6 g/dl (14.0-18.0) L 11/27/24 05:27 Hct 41.8 % (42.0-52.0) L 11/27/24 05:27 MCV 90.9 fL (80.0-100.0) 11/27/24 05:27 MCH 29.6 pg (25.0-34.0) 11/27/24 05:27 MCHC 32.5 g/dL (32.0-36.0) 11/27/24 05:27 RDW Std Deviation 41.7 fL (36.4-46.3) 11/27/24 05:27 RDW Coeff of Capo 12.7 % (11.5-14.5) 11/27/24 05:27 Plt Count 171 K/uL (130-400) 11/27/24 05:27 MPV 9.4 fL (9.4-12.4) 11/27/24 05:27 Immature Gran % (Auto) 0.1 % 11/27/24 05:27 Neut % (Auto) 66.8 % 11/27/24 05:27 Lymph % (Auto) 16.5 % 11/27/24 05:27 Calvert % (Auto) 10.1 % 11/27/24 05:27 Eos % (Auto) 5.8 % 11/27/24 05:27 Baso % (Auto) 0.7 % 11/27/24 05:27 Neut # (Auto) 4.76 K/uL (1.40-6.50) 11/27/24 05:27 Lymph # (Auto) 1.18 K/uL (1.20-3.40) L 11/27/24 05:27 Calvert # (Auto) 0.72 K/uL (0.11-0.59) H 11/27/24 05:27 Eos # (Auto) 0.41 K/uL (0.00-0.50) 11/27/24 05:27 Baso # (Auto) 0.05 K/uL (0.00-0.20) 11/27/24 05:27 Immature Gran # (Auto) 0.01 K/uL (0.01-0.20) 11/27/24 05:27 Polychromasia 1+ 11/26/24 03:17 Echinocytes 1+ 11/26/24 03:17 ESR 31 mm/hr (0-20) H 11/25/24 18:40 PT 11.2 Seconds (9.0-12.0) 11/25/24 18:40 INR 1.0 (0.9-1.1) 11/25/24 18:40 APTT 27 Seconds (21-31) 11/25/24 18:40 PTT Ratio 1.0 11/25/24 18:40 Sodium 139 mmol/L (136-145) 11/27/24 05:27 Potassium 3.7 mmol/L (3.5-5.1) 11/27/24 05:27 Chloride 107 mmol/L (98-107) 11/27/24 05:27 Carbon Dioxide 27 mmol/L (21-32) 11/27/24 05:27 Anion Gap 5 (3-11) 11/27/24 05:27 BUN 10 mg/dl (6-23) 11/27/24 05:27 Creatinine 0.79 mg/dl (0.6-1.4) 11/27/24 05:27 Est Cr Clr Drug Dosing 95.9 ml/min 11/27/24 05:27 eGFR 91.50 11/27/24 05:27 BUN/Creatinine Ratio 12.7 (10-20) 11/27/24 05:27 Glucose 110 mg/dl (70-99(Fasting)) H 11/27/24 05:27 Lactate 1.2 mmol/L (0.4-2.0) 11/25/24 18:40 Calcium 8.8 mg/dl (8.6-10.3) 11/27/24 05:27 Magnesium 1.9 mg/dl (1.7-2.4) 11/27/24 05:27 Total Bilirubin 1.2 mg/dl (0.2-1.0) H 11/27/24 05:27 AST 14 U/L (13-39) 11/27/24 05:27 ALT 12 U/L (7-52) 11/27/24 05:27 Alkaline Phosphatase 80 U/L (34-104) 11/27/24 05:27 C-Reactive Protein 6.03 mg/dl (0-0.5) H 11/25/24 18:40 Total Protein 6.5 gm/dl (6.0-8.3) 11/27/24 05:27 Albumin 3.6 gm/dl (3.4-5.0) 11/27/24 05:27 Globulin 2.9 gm/dl (2.5-4.0) 11/27/24 05:27 Albumin/Globulin Ratio 1.2 (0.9-2) 11/27/24 05:27 Procalcitonin 0.05 ng/ml (0-0.5) 11/25/24 18:40 Random Vancomycin 14.7 mcg/ml (10-20) 11/27/24 05:27 Anaplasma Smear See Comment 11/26/24 03:17 Babesia Smear See Comment 11/26/24 03:17 Lyme Disease Screen Negative (Negative) 11/26/24 03:17 Impressions Abdomen/Pelvis CT 11/25/24 17:59 Exam(s): CT ABDOMEN + PELVIS With Contrast IV Amt: 93 CC OPTI 320 EXAM: CT Abdomen and Pelvis With Intravenous Contrast CLINICAL HISTORY: Reason for exam: scrotal swelling. TECHNIQUE: Axial computed tomography images of the abdomen and pelvis with intravenous contrast. CTDI is 27.56 mGy and DLP is 1606.33 mGy-cm. Automated exposure control was utilized for the study. A dose lowering technique was utilized adhering to the principles of ALARA. CONTRAST: Patient received 93 CC OPTI 320 of IV contrast COMPARISON: 07/10/2020 FINDINGS: ABDOMEN: Liver: Unremarkable. Gallbladder and bile ducts: Cholecystectomy. Pneumobilia. Pancreas: Unremarkable. Spleen: Unremarkable. Adrenals: Unremarkable. Kidneys and ureters: Unremarkable. No obstructing stones. No hydronephrosis. Stomach and bowel: Colonic diverticulosis without acute diverticulitis. PELVIS: Appendix: No findings to suggest acute appendicitis. Bladder: Unremarkable. Reproductive: Unremarkable as visualized. ABDOMEN and PELVIS: Intraperitoneal space: Unremarkable. No free air. No significant fluid collection. Bones/joints: Advanced degenerative changes in the spine. Soft tissues: Fluid collection in the right groin subcutaneous fat measuring 3.5 x 2.2 cm. Vasculature: Unremarkable. Lymph nodes: Unremarkable. IMPRESSION: Fluid collection in the right groin subcutaneous fat measuring 3.5 x 2. 2 cm. Abscess can have this appearance in the appropriate clinical setting. Electronically signed by: Sam Peña MD 11/25/24 21:03 PM Soft Tissue Ultrasound 11/25/24 18:46 Exam(s): US SOFT TISSUE EXAM: US Abdomen Limited CLINICAL HISTORY: Reason for exam: R groin wound; r/o abscess. TECHNIQUE: Real-time ultrasound of the soft tissues of the right groin with image documentation. COMPARISON: No relevant prior studies available. FINDINGS: Soft tissues: Complex fluid collection just deep to the skin surface measuring 3.4 x 2.2 x 2.3 cm consistent with abscess. Surrounding hyperemia. IMPRESSION: Complex fluid collection measuring 3.4 x 2.2 x 2.3 cm consistent with abscess. Electronically signed by: Sam Peña MD 11/25/24 22:51 PM PG Care Time/CCT Total # of Minutes Spent Total Time Spent with Patient: Total time spent is greater than 50% in coordination of care (as documented) at patient's floor/unit and/or counseling patient: Coding Level of Care Code 19103 SUB INP/OBS CARE 04/13MIN Diagnoses Abscess of groin, right L02.214 Neuropathy of both feet G57.93 Essential hypertension I10 Hypertension type: essential hypertension GERD without esophagitis K21.9 Time Spent (min) 25 (3) Hypertension Hypertension type: essential hypertension Qualified Code(s): I10 - Essential (primary) hypertension
[2024-11-28 07:34] VITALS: RESP 19
[2024-11-28 07:53] LABS: Hematocrit (blood only) 43.8 % (42.0-52.0); Hemoglobin 14.7 g/dl (14.0-18.0); Immature Granulocytes # (auto) 0.02 K/uL (0.01-0.20); Immature Granulocytes % (auto) 0.3 %; Mean Corpuscular Hemoglobin 30.4 pg (25.0-34.0); Mean Corpuscular Volume 90.7 fL (80.0-100.0); Platelet Count 211 K/uL (130-400); RDW Standard Deviation 41.0 fL (36.4-46.3); Red Blood Count 4.83 M/uL (4.70-6.10); White Blood Count 6.63 K/ul (4.8-10.8)
[2024-11-28 08:09] LABS: Alanine Aminotransferase 16.0 U/L (7-52); Albumin Globulin Ratio 1.2 (0.9-2); Alkaline Phosphatase 76.0 U/L (34-104); Anion Gap 8.0 (3-11); Bilirubin,Total 1.1 mg/dl (0.2-1.0); Blood Urea Nitrogen 9.0 mg/dl (6-23); Calcium 8.9 mg/dl (8.6-10.3); Carbon Dioxide 27.0 mmol/L (21-32); Chloride 106.0 mmol/L (98-107); Creatinine Clr Calc Pharmacy 92.1 ml/min; Globulin 3.1 gm/dl (2.5-4.0); Glucose 110.0 mg/dl (70-99(Fasting)); Magnesium 1.9 mg/dl (1.7-2.4); Potassium 3.6 mmol/L (3.5-5.1); Sodium 141.0 mmol/L (136-145); Total Protein 6.8 gm/dl (6.0-8.3)
--- NOTE | 2024-11-28 10:00 | Surgery Progress Note ---
Date of Service November 28, 2024 Assessment & Plan (1) Abscess of groin, right: (2) Cellulitis of right groin: Plan 79 yo male with 4 day history of small lump in right groin with increasing swelling and pain. CT and ultrasound consistent with small 3 x 2 cm abscess. Spontaneously opened and drained. 11/28/2024 avss cellulitis vastly improved as well as erythema, no flucutance no need for surgical drainage or debridement okay to shower, daily dressing changes, keep area clean and dry oral abx okay from surgery team for discharge today Discussed with Dr. Deng who agrees with above. Admission and Anticipated Discharge Date Admission Date: November 25, 2024 Subjective feeling better, no groin pain, all pain resolved no n,v no fever or chills Physical Exam Constitutional: WD/WN, vitals as above + obese, cooperative and comfortable; no acute distress and not ill appearing Gastrointestinal (Abdomen): Right groin: There is open wound, with fibrinous tissue present, no dry necrosis. Surrounding induration significantly improved as well as surrounding erythema. No fluctuance. No tenderness to palpation Skin: no rashes, warm and dry Psychiatric: Orientation: alert and oriented x 3 Results & Data Vital Signs (Past 12 Hours) Vital Signs Temp Pulse Pulse Resp BP Pulse Ox O2 Del Method 11/28/24 07:33 36.4 C L 65 19 190/83 H 91 Room Air 11/28/24 03:04 36.7 C 64 18 141/79 H 94 Room Air 11/27/24 22:58 36.5 C 53 L 18 159/77 H 94 Room Air 11/27/24 22:06 53 L Laboratory Results 11/28/24 Range/Units 07:09 WBC 6.63 (4.8-10.8) K/ul RBC 4.83 (4.70-6.10) M/uL Hgb 14.7 (14.0-18.0) g/dl Hct 43.8 (42.0-52.0) % MCV 90.7 (80.0-100.0) fL MCH 30.4 (25.0-34.0) pg MCHC 33.6 (32.0-36.0) g/dL RDW Std Deviation 41.0 (36.4-46.3) fL RDW Coeff of Capo 12.4 (11.5-14.5) % Plt Count 211 (130-400) K/uL MPV 9.8 (9.4-12.4) fL Immature Gran % (Auto) 0.3 % Neut % (Auto) 66.8 % Lymph % (Auto) 15.8 % Clinch % (Auto) 9.7 % Eos % (Auto) 6.3 % Baso % (Auto) 1.1 % Neut # (Auto) 4.43 (1.40-6.50) K/uL Lymph # (Auto) 1.05 L (1.20-3.40) K/uL Clinch # (Auto) 0.64 H (0.11-0.59) K/uL Eos # (Auto) 0.42 (0.00-0.50) K/uL Baso # (Auto) 0.07 (0.00-0.20) K/uL Immature Gran # (Auto) 0.02 (0.01-0.20) K/uL Sodium 141 (136-145) mmol/L Potassium 3.6 (3.5-5.1) mmol/L Chloride 106 (98-107) mmol/L Carbon Dioxide 27 (21-32) mmol/L Anion Gap 8 (3-11) BUN 9 (6-23) mg/dl Creatinine 0.82 (0.6-1.4) mg/dl Est Cr Clr Drug Dosing 92.1 ml/min eGFR 90.47 BUN/Creatinine Ratio 11.0 (10-20) Glucose 110 H (70-99(Fasting)) mg/dl Calcium 8.9 (8.6-10.3) mg/dl Magnesium 1.9 (1.7-2.4) mg/dl Total Bilirubin 1.1 H (0.2-1.0) mg/dl AST 18 (13-39) U/L ALT 16 (7-52) U/L Alkaline Phosphatase 76 (34-104) U/L Total Protein 6.8 (6.0-8.3) gm/dl Albumin 3.7 (3.4-5.0) gm/dl Globulin 3.1 (2.5-4.0) gm/dl Albumin/Globulin Ratio 1.2 (0.9-2)
[2024-11-28 10:55] VITALS: BP 148/83; PULSE 60; TEMP 97.2; O2SAT 93
--- NOTE | 2024-11-28 17:24 | Discharge Summary ---
Discharge Summary Date of Service November 28, 2024 Principal Dx & Hospital Course #1 = Principal Diagnosis (1) Abscess of groin, right: He has pre-diabetes, morbid obesity; lymphadema, hx of insulinoma s/p whipple procedure, hypertension he's been having right groin swelling, bloody discharge and was found to has right groin cellulitis and abscess started one week prior to admission, he's was referred for admission and started van and zosyn he's was seen by Dr. Arnav Deng; which noted patient does not need incision and drainage his edema continue to iprove (2) Neuropathy of both feet: (3) Hypertension: (4) GERD without esophagitis: Plan The patient is a 79-year-old male with past medical history including pre- diabetes, neuropathy of both feet, GERD, esophagitis insulinoma s/p whiipple, history of right TKA, HTN on 11/25/2024. The patient presents to the ED with worsening right groin pain, and swelling, initially noted about 1 week ago, but worsened gradually over the last 4 days. He reports that there was some bloody drainage, however, in the emergency department, he was noted to have a more significant spontaneous drainage occur, which was cultured. He is going to see his PCP today, however, he was referred to the ED for evaluation. He does report some general fatigue and achiness. He and his report that [place] do [place]. Tick panel has been ordered and pending. Right groin abscess- wound culture positive for proteus mirabilis Given vancomycin IV, clindamycin IV and Zosyn IV in ED surgery team following, they are deferring immediate drainage Admit on vancomycin IV and Zosyn IV [place] 5/325, q6h as needed for moderate pain Morphine 2 mg IV q3h as needed for severe pain LR at 80 mL/h x 1 L review lab, review BMP Hypertension- Atenolol 50 mg p.o. and valsartan every morning with hold parameters Hold aspirin Hyperlipidemia- Continue atorvastatin GERD without esophagitis- Change omeprazole to pantoprazole per formulary interchange Right knee OA/TKA- Hold Celebrex Admission HPI Per Admitting Provider The patient is a 79-year-old male with past medical history including neuropathy of both feet, GERD, esophagitis, hypertension, hypercholesterolemia, insulinoma, history of right TKA, and impaired fasting glucose. The patient presents to the emergency department with worsening right groin pain, and swelling, initially noted about 1 week ago, but worsened gradually over the last 4 days. He reports that there was some bloody drainage, however, in the emergency department, he was noted to have a more significant spontaneous drainage occur, which was cultured. He is going to see his PCP today, however, he was referred to the ED for evaluation. He does report some general fatigue and achiness. He and his report that [place]. Tick panel has been ordered and pending. Discharge Plan Discharge Items Patient Disposition: Home - Self-Care Reason For Visit: RIGHT GROIN ABSCESS Discharge Diagnosis: right groin celllulitis pre-diabetes, lymphadema Condition on Discharge: Fair Activity: Per Instructions section Lifting: Gradually increase as tolerated Non-emergency contact: Primary Care Provider Call non-emergency contact if: your symptoms worsen, your pain is not controlled and your pain is worsening Follow-up/Referrals: Jeri Comer PA-C [Physician Coil Winding Supervisor] - Bandar Solitario DO [Primary Care Provider] - 12/04/24 1:00 pm Diet: Carb Consistent or DM2 Addtl Attending Provider Instructions: you will finished 10 more days of antibiotics you need to make appointment to see surgery in the office in one weeks Addtl Cnc Supervisor Provider Instructions: Wound instructions: okay to shower, let water run over area and pat dry keep area clean and dry change dressing daily and as needed wear mesh underwear to keep dressing in place monitor for increase wound drainage, pain, redness and to call office wound check in 1 week Pending Studies at Discharge: Yes Studies:: repeat CBC Stand-Alone Forms: My [facility] [employer], Smoking Cessation Medications and DC Order Prescriptions: New amoxicillin-pot clavulanate 875-125 mg tablet 1 tab PO Q12H 10 Days Qty: 20 0RF doxycycline hyclate 100 mg tablet 100 mg PO BID 10 Days Qty: 20 0RF Continued atenolol 50 mg tablet 50 mg PO QAM Qty: 90 3RF atorvastatin [Lipitor] 80 mg tablet 80 mg PO QAM Qty: 90 3RF celecoxib 200 mg capsule 200 mg PO QAM Qty: 90 3RF Hold Instructions: You will be taking Celebrex twice daily for 30 days after your surgery. You will resume your once daily dosing thereafter. omeprazole 20 mg capsule,delayed release(DR/EC) 20 mg PO QAM Qty: 90 3RF valsartan 80 mg tablet 80 mg PO QAM Qty: 90 3RF aspirin 81 mg tablet 81 mg PO QAM Hold Instructions: You will be taking your aspirin twice daily for the next 30 days. 1 tablet in the morning and 1 tablet in the evening. After 30 days you may resume your once daily dosing of your aspirin tablet Discharge Orders: Discharge Order (Routine); Ordered 11/28/24 Ordered By: Katiana Guerrero/Other Patient Handouts: Abscess Abx Tx, ED Lymphedema Admission Data Admit Date/Time: 11/25/24 23:25 Attending Provider: Katiana Silva Admit Provider: Favian Morales Primary Care Provider: Bandar Solitario Other Providers: Favian Morales; Arnav Deng Other Interventions: Discharge Summary Assessment (RN) Last Done: 11/28/24 12:40 Hospital Stay Data Consultations 11/25/24 22:09 ED Decision to Admit Stat 11/26/24 03:03 Consult General Surgery Routine Diagnostic Imagining Performed 11/25/24 17:59 CT abd pelvis IV con only Stat 11/25/24 18:46 US soft tissue groin Urgent Pending Results Patient Have Any Pending Studies at Discharge: Yes Discharge Instructions Given to Patient (Per Discharging Provider) you will finished 10 more days of antibiotics you need to make appointment to see surgery in the office in one weeks Coding Diagnoses Abscess of groin, right L02.214 Neuropathy of both feet G57.93 Essential hypertension I10 Hypertension type: essential hypertension GERD without esophagitis K21.9
[2024-11-29 00:09] LABS: A calco-baum cmplx NotReported Not Detected (NotDetected); Bact fragilis Not Reported Not Detected (NotDetected); Blood Culture Id Panel See PCR Comment (NotDetected); C auris Not Reported Not Detected (NotDetected); Calbicans Not Reported Not Detected (NotDetected); Candida glabrata Not Reported Not Detected (NotDetected); Candida krusei Not Reported Not Detected (NotDetected); Cneoformans/gatti Not Reported Not Detected (NotDetected); Cparapsilosis Not Reported Not Detected (NotDetected); Ctropicalis Not Reported Not Detected (NotDetected); E cloacae compx Not Reported Not Detected (NotDetected); Efaecalis Not Reported Not Detected (NotDetected); Efaecium Not Reported Not Detected (NotDetected); Enterobacterales Not Reported Not Detected (NotDetected); Escherichia coli Not Reported Not Detected (NotDetected); H influenzae Not Reported Not Detected (NotDetected); K aerogenes Not Reported Not Detected (NotDetected); Koxytoca Not Reported Not Detected (NotDetected); Kpneumoniae grp Not Reported Not Detected (NotDetected); Lmonocyt Not Reported Not Detected (NotDetected); N meningitidis Not Reported Not Detected (NotDetected); P aeruginosa Not Reported Not Detected (NotDetected); Proteus spp Not Reported Not Detected (NotDetected); Salmonella spp Not Reported Not Detected (NotDetected); Staph lugdunensis Not Reported Not Detected (NotDetected); Staph spp. Not Reported DETECTED (NotDetected); Staphaureus Not Reported Not Detected (NotDetected); Staphepi Not Reported Not Detected (NotDetected); Stenmaltophilia Not Reported Not Detected (NotDetected); Strep agal(GrpB) Not Reported Not Detected (NotDetected); Strep pneum Not Reported Not Detected (NotDetected); Strep pyog (GrpA) Not Reported Not Detected (NotDetected); Strep spp Not Reported Not Detected (NotDetected)
[2024-11-29 00:38] LABS: Staphylococcus spp. DETECTED (NotDetected)
== END 2024-11-28 13:20 | disposition home or self-care (01) | DRG 603 ==
LOC: ED 17:12 → EDINP 23:25 → SUATTDRO 23:25 → 2S 11-26 00:57